=== PATIENT | male | born 1965 | race African-American/Black ===

== ENCOUNTER 2020-04-24 12:14 | Emergency (ER) | payer OTHER, SELFPAY ==
--- NOTE | 2020-04-24 12:21 | ECG_ITS ---
Test Reason : AMS Blood Pressure : / mmHG Vent. Rate : 066 BPM Atrial Rate : 066 BPM P-R Int : 182 ms QRS Dur : 096 ms QT Int : 416 ms P-R-T Axes : 044 -12 -70 degrees QTc Int : 436 ms Normal sinus rhythm Nonspecific T wave abnormality Abnormal ECG When compared with ECG of 09-FEB-2019 00:42, Nonspecific T wave abnormality, worse in Lateral leads Referred By: Yudith Felton Electronically Signed By:SHAZIA TOMPKINS MD
[2020-04-24 12:24] VITALS: BP 149/83; PULSE 65; RESP 18; TEMP 36.6; O2SAT 97; BMI 47.5
[2020-04-24 12:28] LABS: Glucose, Whole Blood 257 mg/dL (60-115)
--- NOTE | 2020-04-24 12:28 | PC.NURSE ---
POC AND EKG OBTAINED UPON PT ARRIVAL
--- NOTE | 2020-04-24 13:21 | ED.GENADULT ---
HPI - General Adult General Chief complaint: General Medical Stated complaint: AMS X'S 1 WEEK,NO MEDS X 'S 1 WEEK Time Seen by Provider: 04/24/20 12:32 Source: patient Mode of arrival: ambulatory Limitations: no limitations History of Present Illness HPI narrative: patient is a 54-year-old male with a past medical history of anxiety, diabetes and neuropathy he presents stating he has not had medications for 1 week. He states he went to [facility] to see his doctor Dr. Sen but missed his appointment and was unable to get refills. Admits to increased anxiety. Denies SI/HI. Related Data Home Medications Medication Instructions Recorded Confirmed divalproex [Depakote ER] 500 mg PO DAILY 04/24/20 04/24/20 trazodone 50 mg PO BEDTIME 04/24/20 04/24/20 Allergies Allergy/AdvReac Type Severity Reaction Status Date / Time morphine [MORPHINE] Allergy Mild ITCHING Unverified 03/20/20 16:14 aspirin [ASPIRIN] Allergy Unknown UNKNOWN Unverified 03/20/20 16:14 NSAIDS (Non-Steroidal Allergy Unknown UNKNOWN Unverified 03/20/20 16:14 Anti-Inflamma [NSAIDS (NON-STEROIDAL ANTI-INFLAMMA] acetaminophen [From TYLENOL] AdvReac Intermediate GI UPSET Unverified 03/20/20 16:14 tramadol [TRAMADOL] AdvReac Mild VOMITING Unverified 03/20/20 16:14 ketorolac [From TORADOL] AdvReac Unknown NAUSEA Unverified 03/20/20 16:14 From DEMEROL Allergy Mild ITCHING Uncoded 03/20/20 16:14 From DILAUDID Allergy Mild ITCHING Uncoded 03/20/20 16:14 Review of Systems Review of Systems: Yes all other systems are reviewed and are negative PMFSH Past Medical History Attestation statement: The following information was validated with the patient. Medical History Anxiety Cataract Diabetes Glaucoma Neuropathy Social History Social History Alcohol intake: never Smoking Status: Never smoker Use of substances other than those prescribed or required for medical reasons: No Advance Directives: No Advance Directives Information Provided: Yes Advance Directives on File: No Physical Exam Vital Signs: Vital Signs: Vital Signs Temp Pulse Resp BP Pulse Ox 04/24/20 14:00 98.1 F 74 16 137/71 97 04/24/20 12:24 98 F 65 18 149/83 H 97 Body Mass Index 47.5 Const: General: cooperative, comfortable and no acute distress Nutritional Appearance: obese morbidly obese Orientation/consciousness: patient oriented x3 Limitations: no limitations HENMT: Head: Yes normal to inspection Eyes: General: appearance normal, both eyes and all related structures Neck: Neck: Yes normal visual inspection Resp: Effort & Inspection: normal respiratory effort and able to speak in complete sentences Auscultation: clear to auscultation bilaterally Cardio: Rate: regular rate Rhythm: regular rhythm Heart sounds: S1 normal heart sound present and S2 normal heart sound present Neuro: General: patient oriented x3 Extrem: General: Yes normal to inspection Psych: Appearance: disheveled Affect: normal affect Attitude: cooperative Thought process: Normal thought process present Thought content: Normal thought content present Insight: Good insight present (Psych) Judgement: Good judgement present (Psych) Course Course Course Narrative: 54-year-old male with past medical history of bipolar, anxiety, diabetes and neuropathy stating he ran out of his medications 1 week ago. We will call his pharmacy to confirm meds give him a dose today and asked the pharmacy to request a refill. Reevaluation(s) Reevaluation #1: Teodoro, the nurse, was able to call patient's pharmacy, [facility] in [place], confirmed doses, gave one dose of each medication and requested refills on patient's behalf. Will give today's dose in the ED and then discharge pt. Medical Decision Making Lab Data Labs: Lab Results 04/24/20 Range/Units 12:24 POC Glucose 257 H (60-115) mg/dL Discharge Plan Discharge Clinical Impression: Does not refill medications appropriately Patient Disposition: Home, Self-Care Instructions: Medicine Refill (ED) Prescriptions: No Action trazodone 50 mg Tablet 50 mg PO BEDTIME RF: 0 divalproex [Depakote ER] 500 mg Tablet Extended Release 24 Hr 500 mg PO DAILY RF: 0 Interventions: ED Discharge Assessment Last Done: 04/24/20 13:59 Discharge Date/Time: 04/24/20 14:48
[2020-04-24] MEDS: Divalproex Sodium 500 MG TABLET.DR PO (13:52)
[2020-04-24] MEDS: traZODone HCL 50 MG TABLET PO (13:52)
[2020-04-24 14:00] VITALS: BP 137/71; PULSE 74; RESP 16; TEMP 36.7; O2SAT 97
== END 2020-04-24 14:48 | disposition home or self-care (01) ==
PROVIDERS: Emergency Provider Emergency Medicine
DX: F41.9 Anxiety disorder, unspecified (principal); F43.0 Acute stress reaction; Z91.14 Patient's other noncompliance with medication regimen; Z79.899 Other long term (current) drug therapy
CPT/HCPCS: 82947; 93005; 99283; 99284

== ENCOUNTER 2020-06-24 12:49 | Emergency (ER) | payer OTHER, SELFPAY ==
--- NOTE | 2020-06-24 13:01 | PC.NURSE ---
severe lower back pain acute on chronic going to physical therapy. poc 160 by ems.
[2020-06-24 15:01] VITALS: BP 134/68; PULSE 77; RESP 18; TEMP 37; O2SAT 98; BMI 48.8
--- NOTE | 2020-06-24 15:42 | CT_ITS ---
EXAMINATION: CT THORACIC SPINE WITHOUT CONTRAST CT LUMBAR SPINE WITHOUT CONTRAST CLINICAL INFORMATION: Fall. Incontinence. Decreased rectal tone. COMPARISON: CT thoracic and lumbar spine from 02/19/2019. TECHNIQUE: Multidetector helical imaging of the thoracic and lumbar spine was obtained without intravenous contrast. Multiple axial reformats and coronal/sagittal reconstructions were created the technologist workstation for review. This CT examination was performed using dose optimization techniques as appropriate, variously including the following: *Automated exposure control. *Adjustment of mA and/or kV according to patient size (this includes techniques or standardized protocols for targeted exams where dose is matched to indication/reason for exam; i.e. extremities or head). *Use of iterative reconstruction technique. DLP: 2449 mGy-cm FINDINGS: Thoracic Spine: There are 12 rib-bearing thoracic type vertebrae. Mild right convex curvature of the thoracic spine. Otherwise, normal anatomic alignment. No evidence of acute fracture or traumatic subluxation. Mild degenerative anterior wedging of T6. Otherwise, the vertebral body heights are maintained. Advanced degenerative disc disease at C6-C7. Moderate degenerative disc disease at C7-T1. Bridging right anterior osteophytosis from T4-T10. Minimal loss of vertebral body height throughout the upper and mid thoracic spine. No suspicious lytic or sclerotic osseous lesions. No significant abnormalities of the paraspinal musculature. Potential 1.7 cm hypoattenuating nodule in the lower pole of the right thyroid lobe. Coronary artery calcifications. Global cardiac enlargement. Otherwise, limited evaluation of the intrathoracic structures without significant abnormalities. The thoracic aorta is of normal contour and caliber. AXIAL SPINAL LEVELS: Prominent disc osteophyte complex at C6-C7. Partially calcified central disc herniation at T2-T3. No additional demonstrated annular abnormalities on the limited exam without intrathecal contrast. Moderate multilevel thoracic facet joint arthropathy. There is partially calcified ligamentum flavum hypertrophy at T2-T3 and T3-T4. Mild to moderate osseous encroachment on the right-sided neural foramina from T1-T4. There appears to be moderate spinal canal stenosis at T2-T3, and potentially mild spinal canal stenosis at T3-T4. Lumbar Spine: There are 5 nonrib-bearing lumbar-type vertebrae. Minimal left convex curvature of the lumbar spine. Otherwise, normal anatomic alignment. No evidence of acute fracture or traumatic subluxation. The vertebral body heights are maintained. Moderate degenerative disc disease from L3-S1 with vacuum disc phenomenon at L4-L5. The intervertebral disc spaces are maintained. No suspicious lytic or sclerotic osseous lesions. Moderate subcutaneous edema within the soft tissues of the back from L2-S1. No discrete fluid collection. No additional significant abnormalities of the paraspinal musculature. Limited evaluation of the intra-abdominal structures without significant abnormalities. The abdominal aorta is of normal contour and caliber with mild calcific disease. AXIAL SPINAL LEVELS: L1-L2: Mild left foraminal disc protrusion. There is moderate right and mild left facet joint arthropathy. There is no neural foraminal stenosis. There is no demonstrated spinal canal stenosis. L2-L3: Mild diffuse disc bulge. There is moderate left worse than right facet joint arthropathy. There is mild left and no right neural foraminal stenosis. There is no demonstrated spinal canal stenosis. L3-L4: Moderate diffuse disc bulge. There is severe bilateral facet joint arthropathy. There is moderate left worse than right neural foraminal stenosis. There appears to be moderate spinal canal stenosis. L4-L5: Moderate diffuse disc bulge with superimposed partially calcified central/left subarticular disc protrusion. There is severe right worse than left facet joint arthropathy. There is moderate left worse than right neural foraminal stenosis. There appears to be mild spinal canal stenosis. L5-S1: Mild diffuse disc bulge with posterior osseous ridging. There is severe right and mild left facet joint arthropathy. There is no neural foraminal stenosis. There is no demonstrated spinal canal stenosis. CT/CT thoracic spine w con IMPRESSION: 1. No evidence of acute fracture or traumatic subluxation of the thoracal lumbar spine. 2. Moderate multilevel degenerative spondyloarthropathy of the lumbar spine as described in detail above. Most notably on this limited exam without intrathecal contrast, there appears to be moderate spinal canal stenoses at L3-L4 and L4-L5. Moderate neural foraminal stenoses at L3-L4 and L4-L5. 3. Mild to moderate multilevel degenerative spondyloarthropathy of the thoracic spine as described in detail above. Most notably on this limited exam without intrathecal contrast, there appears to be moderate spinal canal stenosis at T2-T3 and potentially mild spinal canal stenosis at T3-T4. Mild to moderate osseous encroachment on the right-sided neural foramina from T1-T4. 4. Cardiomegaly.
--- NOTE | 2020-06-24 16:13 | ED_ITS ---
HPI - Fall General Chief Complaint: Fall Stated Complaint: BACK PAIN Time Seen by Provider: 06/24/20 14:56 Source: patient and EMS Mode of arrival: EMS History of Present Illness HPI Narrative: 54-year-old male with a past medical history of anxiety, cataracts, diabetes, glaucoma, hypertension, neuropathy, sleep apnea, obesity, presenting to the ED complaining of low back pain s/p mechanical fall in the bathtub 2 days ago. Patient reports his legs gave out and he fell back on right side. At baseline uses wheelchair, only ambulates minimally due to prior accident/ back surgery in the past. Admits to chronic urinary incontinence, ho wever worsening since fall. Admits pain radiates down right lower extremity. Denies numbness, urinary retention, fever, chills, weakness MD complaint: fall Onset (ago): day(s) Related Data Home Medications Medication Instructions Recorded Confirmed divalproex [Depakote ER] 500 mg PO DAILY 04/24/20 04/24/20 trazodone 50 mg PO BEDTIME 04/24/20 04/24/20 amlodipine 06/24/20 06/24/20 gabapentin 06/24/20 glipizide 06/24/20 hydrochlorothiazide 06/24/20 lisinopril 06/24/20 Previous Rx's Medication Instructions Recorded cyclobenzaprine 10 mg PO TID PRN #10 tab 06/24/20 Allergies Allergy/AdvReac Type Severity Reaction Status Date / Time morphine [MORPHINE] Allergy Mild ITCHING Unverified 03/20/20 16:14 aspirin [ASPIRIN] Allergy Unknown UNKNOWN Unverified 03/20/20 16:14 NSAIDS (Non-Steroidal Allergy Unknown UNKNOWN Unverified 03/20/20 16:14 Anti-Inflamma [NSAIDS (NON-STEROIDAL ANTI-INFLAMMA] acetaminophen [From TYLENOL] AdvReac Intermediate GI UPSET Unverified 03/20/20 16:14 tramadol [TRAMADOL] AdvReac Mild VOMITING Unverified 03/20/20 16:14 ketorolac [From TORADOL] AdvReac Unknown NAUSEA Unverified 03/20/20 16:14 From DEMEROL Allergy Mild ITCHING Uncoded 03/20/20 16:14 From DILAUDID Allergy Mild ITCHING Uncoded 03/20/20 16:14 Review of Systems Review of Systems: Constitutional: No Weight loss, No Fever, No Chills Cardiovascular: No Chest Pain, No SOB Respiratory: No Cough, No Sputum, No Wheezing, No Smoke Exposure, No Dyspnea Gastrointestinal: No Nausea, No Vomiting, No Diarrhea, No Abdominal pain Genitourinary: No Urinary Frequency, No Hematuria, +chronic urinary Incontinence worse, No retention, No Urgency, No Flank Pain, no fecal incontinence Musculoskeletal: +back pain, No Myalgias, No Joint Swelling Skin: No Skin Lesions, No rash Neuro: No Weakness, No Numbness, No Paresthesias, No Loss of Consciousness Psych: No Anxiety/Panic, No Depression, No SI/HI/AH/VH, No Social Issues, Heme/Lymph: No Bruising, No Bleeding,No Lymphadenopathy Endocrine: No Polyuria, No Polydipsia, No Temperature Intolerance Yes all other systems are reviewed and are negative [facility] Past Medical History Attestation statement: The following information was validated with the patient. Medical History (Updated 06/24/20 @ 18:08 by QUIQUE Moreno) Anxiety Cataract Diabetes Glaucoma Hypertension Neuropathy Sleep apnea Social History Social History Alcohol intake: never Smoking Status: Current every day smoker Smoked in Last 30 Days: Yes Use of substances other than those prescribed or required for medical reasons: Yes Substance Use Type: Marijuana Substance Use Frequency: Occasionally Last Used Substance: Days (ago) Advance Directives: No Advance Directives Information Provided: Yes Physical Exam Vital Signs: Vital Signs: Last Vital Signs Temp 98.6 F 06/24/20 15:01 Pulse 69 06/24/20 17:59 Resp 16 06/24/20 17:59 BP 134/68 06/24/20 15:01 Pulse Ox 98 06/24/20 17:59 Body Mass Index 48.8 Const: General: cooperative Nutritional Appearance: obese Limitations: no limitations HENMT: Head: Yes normal to inspection Ears: hearing grossly normal bilaterally General nose exam: Normal external nose present Face and sinus: Yes normal facial exam Eyes: General: appearance normal, both eyes and all related structures EOM: EOMs intact bilaterally Neck: Other: No midline cervical spinous tenderness Neck: Yes normal visual inspection Resp: Effort & Inspection: normal respiratory effort Cardio: Rate: regular rate GI: Inspection: Yes normal to inspection Palpation (GI): Soft to palpation, nontender, no guarding and not rigid Back/Spine/Pelvis: Other: +mildine and bilateral MSK lumbar spinous ttp, +bilateral paraspainal thoracic MSK tenderness Skin: Rashes: no rashes Wounds: no wounds Neuro: Other: decreased RLE great toe dorsiflexion. NO saddle anesthesia, sensation intact to light touch throughout perianal area. Rectal tone decreased General: tone normal Extrem: General: Yes normal to inspection Course Course Course Narrative: * Patient has been sleeping comfortably in stretcher since ED arrival CT thoracic/lumbar spine IMPRESSION: 1. No evidence of acute fracture or traumatic subluxation of the thoracal lumbar spine. 2. Moderate multilevel degenerative spondyloarthropathy of the lumbar spine as described in detail above. Most notably on this limited exam without intrathecal contrast, there appears to be moderate spinal canal stenoses at L3-L4 and L4-L5. Moderate neural foraminal stenoses at L3-L4 and L4-L5. 3. Mild to moderate multilevel degenerative spondyloarthropathy of the thoracic spine as described in detail above. Most notably on this limited exam without intrathecal contrast, there appears to be moderate spinal canal stenosis at T2-T3 and potentially mild spinal canal stenosis at T3-T4. Mild to moderate osseous encroachment on the right-sided neural foramina from T1-T4. 4. Cardiomegaly * Case discussed with Dr. Felton, do not see need for further imaging or transfer at this time. Results discussed with patient. He reports symptomatic improvement in the ED. I stressed the importance with patient he needs to follow up with his PCP/Spine doctor for further evaluation and likely MRI outpatient. Discussed worrisome signs and symptoms including worsening or persistent incontinence, any fecal incontinence, weakness, persistent unremitting pain, un bearable pain to return to the ED immediately. Patient verbalized understanding and feels safe for discharge home MDM - Fall MDM Narrative Medical decision making narrative: 54-year-old male with a past medical history of anxiety, cataracts, diabetes, glaucoma, hypertension, neuropathy, sleep apnea, obesity, presenting to the ED complaining of low back pain s/p mechanical fall in the bathtub 2 days ago. On exam VSS, NAD, midline lumbar spinous tenderness in [place] spinal thoracic/lumbar tenderness. No saddle anesthesia however decreased rectal tone appreciated. Concern for ?cauda equina or cord compression vs fracture vs acute on chronic symptoms. Unclear if these are new/old findings with patient's history. MRI initially ordered however patient exceeds weight limit Plan: CT with contrast for further evaluation Lab Data Result diagrams: 06/24/20 16:32 06/24/20 16:32 Labs: Lab Results 06/24/20 06/24/20 Range/Units 16:32 16:32 WBC 6.1 (4.8-10.8) X10*3/uL RBC 5.20 (4.60-5.80) X10*6/uL Hgb 13.2 L (14.0-18.0) g/dl Hct 41.9 L (42-52) % MCV 80.6 (80-98) fL MCH 25.4 L (27.0-33.0) pg MCHC 31.5 (31.0-36.0) g/dl RDW 13.8 (11.0-16.0) % Plt Count 298 (160-400) X10*3/uL MPV 9.8 (9.4-12.4) fL Immature Gran % (Auto) 0.2 (0.0-0.4) % Neut % (Auto) 57.5 (45-73) % Lymph % (Auto) 33.0 (20-40) % Otero % (Auto) 5.9 (2-11) % Eos % (Auto) 2.6 (0-4) % Baso % (Auto) 0.8 (0-2) % Lymph # (Auto) 2.0 (1.2-4.9) X10*3/uL Otero # (Auto) 0.4 (0.1-1.2) X10*3/uL Eos # (Auto) 0.2 (0.0-0.4) X10*3/uL Baso # (Auto) 0.1 (0.0-0.2) X10*3/uL Abs Immat Gran (auto) 0.01 (0.00-0.03) X10*3/uL Absolute Neuts (auto) 3.5 (2.0-8.3) X10*3/uL Absolute Nucleated RBC 0.000 (0.0-0.012) X10*3/uL Nucleated RBC % (auto) 0.0 (0.0-0.2) /100WBC Sodium 140 (135-145) mmol/L Potassium 3.2 L (3.3-5.1) mmol/l Chloride 100 (96-108) mmol/L Carbon Dioxide 34 H (22-29) mmol/L Anion Gap 9 L (12-20) BUN 8 L (9-16) mg/dL Creatinine 0.79 (0.5-1.4) mg/dL Estim Creat Clear Calc 165.2 Estimated GFR > 60 Random Glucose 89 (60-115) mg/dL Calcium 9.1 (8.4-10.2) mg/dL Discharge Plan Discharge Clinical Impression: Back pain Patient Disposition: Home, Self-Care Instructions: Back Pain (ED) Additional Instructions: Your imaging studies did not show anything acutely concerning or that would need surgical intervention at this time However an MRI as the ideal study for you, you need to follow-up with your primary care doctor and spine doctor as soon as possible, likely needing an MRI outpatient Flexeril as a muscle relaxer, take at for your pain, take at night as you cannot drink alcohol, operate machinery, or drive while taking this medication If her pain persists or worsens, you develop worsening or persistent urinary incontinence or fecal incontinence, or weakness return to the ED immediately Prescriptions: New cyclobenzaprine 10 mg tablet 10 mg PO TID PRN (Reason: muscle spasm) Qty: 10 RF: 0 No Action trazodone 50 mg Tablet 50 mg PO BEDTIME RF: 0 divalproex [Depakote ER] 500 mg Tablet Extended Release 24 Hr 500 mg PO DAILY RF: 0 amlodipine RF: 0 gabapentin RF: 0 glipizide RF: 0 hydrochlorothiazide RF: 0 lisinopril RF: 0 Referrals: Physician,Unknown [Primary Care Provider] - 1 day
[2020-06-24] MEDS: Cyclobenzaprine HCl 10 MG TABLET PO (16:33)
[2020-06-24 16:39] LABS: Basophils Absolute Auto 0.1 X10*3/uL (0.0-0.2); Basophils Percent Auto 0.8 % (0-2); Eosinophils Absolute Auto 0.2 X10*3/uL (0.0-0.4); Eosinophils Percent Auto 2.6 % (0-4); Hematocrit 41.9 % (42-52); Hemoglobin 13.2 g/dl (14.0-18.0); Imm Gran Abs Auto 0.01 X10*3/uL (0.00-0.03); Imm Gran Pct Auto 0.2 % (0.0-0.4); MANUAL DIFF FLAG NO; Mean Corpuscular HGB Conc 31.5 g/dl (31.0-36.0); Mean Corpuscular Hemoglobin 25.4 pg (27.0-33.0); Mean Corpuscular Volume 80.6 fL (80-98); Mean Platelet Volume 9.8 fL (9.4-12.4); Monocytes Absolute Auto 0.4 X10*3/uL (0.1-1.2); Monocytes Percent Auto 5.9 % (2-11); Neutrophils Absolute Auto 3.5 X10*3/uL (2.0-8.3); Neutrophils Percent Auto 57.5 % (45-73); Platelet Count 298 X10*3/uL (160-400); Red Cell Distribution Width 13.8 % (11.0-16.0); White Blood Count 6.1 X10*3/uL (4.8-10.8)
[2020-06-24 17:05] LABS: Anion Gap 9 (12-20); Blood Urea Nitrogen 8 mg/dL (9-16); Calcium 9.1 mg/dL (8.4-10.2); Carbon Dioxide 34 mmol/L (22-29); Chloride 100 mmol/L (96-108); Creatinine Clr Calc Pharmacy 165.2; Estimated Glomerular Filt Rate > 60; Glucose Random 89 mg/dL (60-115); Potassium 3.2 mmol/l (3.3-5.1); Sodium 140 mmol/L (135-145)
[2020-06-24] MEDS: iohexoL 350 MG/ML 100 ML INFUS..BTL IV (17:28)
[2020-06-24 17:59] VITALS: PULSE 69; RESP 16; O2SAT 98
== END 2020-06-24 21:08 | disposition home or self-care (01) ==
PROVIDERS: Physician Assistant; Emergency Provider Emergency Medicine
DX: M54.5 Low back pain (principal); I10 Essential (primary) hypertension; F17.200 Nicotine dependence, unspecified, uncomplicated; Z71.6 Tobacco abuse counseling; F12.90 Cannabis use, unspecified, uncomplicated; Z79.899 Other long term (current) drug therapy
CPT/HCPCS: 36415; 72129; 72132; 80048; 85025; 99285; Q9967

== ENCOUNTER 2021-01-24 18:45 | Emergency (ER) | payer OTHER, SELFPAY ==
--- NOTE | ~2021-01-24 | XR_ITS ---
EXAMINATION: XR SHOULDER, LEFT CLINICAL INFORMATION: Left shoulder pain COMPARISON: Left shoulder radiographs 12/05/2011 TECHNIQUE: Three views of the left shoulder. FINDINGS: Degenerative changes are present shoulder with some glenoid and humeral osteophytes along with some calcification which may be present in the supraspinatus tendon laterally. These findings were not present on the 2011 study. XR/XR shoulder LT min 2V IMPRESSION: New (since 2011) degenerative changes in the right shoulder with possible supraspinatus tendon calcification. No evidence of an acute injury.
[2021-01-24 19:19] VITALS: BP 168/90; PULSE 73; RESP 18; TEMP 36.9; O2SAT 99; BMI 46.0
--- NOTE | 2021-01-24 20:22 | ED_ITS ---
HPI - Extremity Problem General Chief complaint: Extremity Injury, Upper Stated complaint: shoulder pain Time Seen by Provider: 01/24/21 20:22 History of Present Illness HPI Narrative: Patient complains of left trapezius and left shoulder pain after he slipped off the bed 2 days ago when he was sitting on the bed, he has limited mobility due to chronic long-term severe back pain from herniated discs, no other injury, no numbness weakness or tingling Related Data Home Medications Medication Instructions Recorded Confirmed divalproex 500 mg tablet,extended 500 mg PO DAILY 04/24/20 04/24/20 release 24 hr (Depakote ER) trazodone 50 mg tablet 50 mg PO BEDTIME 04/24/20 04/24/20 amlodipine 06/24/20 06/24/20 gabapentin 06/24/20 glipizide 06/24/20 hydrochlorothiazide 06/24/20 lisinopril 06/24/20 Previous Rx's Medication Instructions Recorded cyclobenzaprine 10 mg tablet 10 mg PO TID PRN #10 tab 06/24/20 cyclobenzaprine 5 mg tablet 5 mg PO TID PRN #10 tab 01/24/21 oxycodone 5 mg tablet 5 mg PO Q6H PRN #7 tab 01/24/21 Allergies Allergy/AdvReac Type Severity Reaction Status Date / Time morphine [MORPHINE] Allergy Mild ITCHING Verified 01/24/21 19:19 aspirin [ASPIRIN] Allergy Unknown UNKNOWN Verified 01/24/21 19:19 NSAIDS (Non-Steroidal Allergy Unknown UNKNOWN Verified 01/24/21 19:19 Anti-Inflamma [NSAIDS (NON-STEROIDAL ANTI-INFLAMMA] acetaminophen [From TYLENOL] AdvReac Intermediate GI UPSET Verified 01/24/21 19:19 tramadol [TRAMADOL] AdvReac Mild VOMITING Verified 01/24/21 19:19 ketorolac [From TORADOL] AdvReac Unknown NAUSEA Verified 01/24/21 19:19 From DEMEROL Allergy Mild ITCHING Uncoded 03/20/20 16:14 From DILAUDID Allergy Mild ITCHING Uncoded 03/20/20 16:14 Review of Systems Review of Systems: Positive for left trapezius and left shoulder pain Negatives are no headache no dizziness no weakness no fainting no feeling faint no neck pain no numbness weakness or tingling no chest pain no palpitations no abdominal pain no other extremity pains Yes all other systems are reviewed and are negative [facility] Past Medical History Source: nursing notes reviewed Medical History (Updated 01/25/21 @ 00:00 by Zahida Chand) Anxiety Cataract Diabetes Glaucoma Hypertension Neuropathy Sleep apnea Social History Social History Alcohol intake: never Substance Use Type: Marijuana Advance Directives: No Advance Directives Information Provided: Yes Physical Exam Vital Signs: Vital Signs: Last Vital Signs Temp 98.5 F 01/24/21 19:19 Pulse 73 01/24/21 19:19 Resp 18 01/24/21 19:19 BP 168/90 H 01/24/21 19:19 Pulse Ox 99 01/24/21 19:19 Body Mass Index 46.0 General appearance no acute distress Head is normocephalic atraumatic Neck is supple with no midline tenderness no There is some mild left trapezius tenderness The chest is clear to auscultation bilateral there is no clavicle tenderness there is no chest wall tenderness Heart no murmur Abdomen soft nontender The back no focal bony tenderness Extremities no tenderness swelling or deformity Neuro no focal motor or sensory deficits, ribbon inker strength in both hands is symmetric Course Course Course Narrative: Left shoulder x-ray was negative for any acute fracture, there were some arthritic changes and patient was discharged with analgesics and muscle relaxer and follow with primary doctor Discharge Plan Discharge Clinical Impression: Left shoulder strain Patient Disposition: Home, Self-Care Additional Instructions: I wrote a short course of oxycodone, you can use Flexeril for muscle relaxer Follow with primary doctor any further evaluation or referral Return any time if worse Prescriptions: New cyclobenzaprine 5 mg tablet 5 mg PO TID PRN (Reason: muscle spasm) Qty: 10 RF: 0 oxycodone 5 mg tablet 5 mg PO Q6H PRN (Reason: pain) Qty: 7 RF: 0 No Action trazodone 50 mg Tablet 50 mg PO BEDTIME RF: 0 divalproex [Depakote ER] 500 mg Tablet Extended Release 24 Hr 500 mg PO DAILY RF: 0 amlodipine RF: 0 gabapentin RF: 0 glipizide RF: 0 hydrochlorothiazide RF: 0 lisinopril RF: 0 cyclobenzaprine 10 mg tablet 10 mg PO TID PRN (Reason: muscle spasm) Qty: 10 RF: 0 Interventions: ED Discharge Assessment Last Done: 01/24/21 20:33 Discharge Date/Time: 01/24/21 20:52
== END 2021-01-24 20:52 | disposition home or self-care (01) ==
PROVIDERS: Emergency Provider Emergency Medicine; PCP Physician Assistant Medical
DX: S46.912A Strain of unspecified muscle, fascia and tendon at shoulder and upper arm level, left arm, initial encounter (principal); W06.XXXA Fall from bed, initial encounter; Y93.89 Activity, other specified; Y92.013 Bedroom of single-family (private) house as the place of occurrence of the external cause; Y99.9 Unspecified external cause status
CPT/HCPCS: 73030; 99283

== ENCOUNTER 2021-07-25 17:39 | Emergency (ER) | payer OTHER, SELFPAY ==
--- NOTE | 2021-07-25 | ECG_ITS ---
Test Reason : CHESTPAIN Blood Pressure : / mmHG Vent. Rate : 075 BPM Atrial Rate : 075 BPM P-R Int : 202 ms QRS Dur : 098 ms QT Int : 396 ms P-R-T Axes : 008 -25 -46 degrees QTc Int : 442 ms Normal sinus rhythm Moderate voltage criteria for LVH, may be normal variant ( R in aVL , Spencer product ) Nonspecific T wave abnormality Abnormal ECG When compared with ECG of 24-APR-2020 12:21, No significant change was found Referred By: Generic ED Physician Electronically Signed By:Justin England
[2021-07-25 18:06] VITALS: BP 180/110; BP 190/112; PULSE 76; PULSE 86; RESP 18; TEMP 36.2; O2SAT 100; O2SAT 98; BMI 48.8
[2021-07-25 18:43] LABS: Appearance Urine CLOUDY; Color Urine STRAW; Glucose Urine UA >=1000 MG/DL (NEG); Leukocyte Esterase Urine NEG (NEG); Nitrite Urine NEG (NEG); PH 5.5 (5.0-8.0); Urine Blood NEG (NEG); Urine Ketones NEG (NEG); Urine Protein NEG (NEG-TRACE)
[2021-07-25 18:51] LABS: Mucus Urine TRACE /LPF; RBC Urine 0 /HPF (0); Squamous Epithelial Cell Urine TRACE /LPF; WBC Urine 0-2 /HPF (0-4)
[2021-07-25 18:52] LABS: Amorphous Sediment Urine 1+ /LPF
[2021-07-25 18:53] LABS: Bacteria Urine 1+ /LPF
--- NOTE | 2021-07-25 22:52 | ED.GENADULT ---
HPI - General Adult General Chief complaint: General Medical Stated complaint: hyperglycemia 300's Time Seen by Provider: 07/25/21 22:02 Source: patient Mode of arrival: EMS History of Present Illness HPI narrative: 55-year-old male with multiple medical conditions presents via ambulance from the hotel room where he stays, this patient is a and currently seen at [facility] and comes in for concerns about headache, back pain (has had prior back surgery), shortness of breath, and generalized weakness. Patient has a history of diabetes as well as hypertension. Patient reports that he has had his COVID-19 vaccine, he reports chills but denies any nausea, vomiting, diarrhea. In addition, patient denies any chest pain/palpitations. Patient denies any hearing/visual/extremity numbness, tingling, weakness. Related Data Home Medications Medication Instructions Recorded Confirmed divalproex 500 mg tablet,extended 500 mg PO DAILY 04/24/20 04/24/20 release 24 hr (Depakote ER) trazodone 50 mg tablet 50 mg PO BEDTIME 04/24/20 04/24/20 amlodipine 06/24/20 06/24/20 gabapentin 06/24/20 glipizide 06/24/20 hydrochlorothiazide 06/24/20 lisinopril 06/24/20 Previous Rx's Medication Instructions Recorded cyclobenzaprine 10 mg tablet 10 mg PO TID PRN #10 tab 06/24/20 cyclobenzaprine 5 mg tablet 5 mg PO TID PRN #10 tab 01/24/21 oxycodone 5 mg tablet 5 mg PO Q6H PRN #7 tab 01/24/21 Allergies Allergy/AdvReac Type Severity Reaction Status Date / Time morphine [MORPHINE] Allergy Mild ITCHING Verified 07/25/21 18:09 aspirin [ASPIRIN] Allergy Unknown UNKNOWN Verified 07/25/21 18:09 NSAIDS (Non-Steroidal Allergy Unknown UNKNOWN Verified 07/25/21 18:09 Anti-Inflamma [NSAIDS (NON-STEROIDAL ANTI-INFLAMMA] acetaminophen [From TYLENOL] AdvReac Intermediate GI UPSET Verified 07/25/21 18:09 tramadol [TRAMADOL] AdvReac Mild VOMITING Verified 07/25/21 18:09 ketorolac [From TORADOL] AdvReac Unknown NAUSEA Verified 07/25/21 18:09 From DEMEROL Allergy Mild ITCHING Uncoded 07/25/21 18:09 From DILAUDID Allergy Mild ITCHING Uncoded 07/25/21 18:09 Review of Systems Review of Systems: Pertinent positives and negatives as stated in HPI 10 point review of systems is otherwise negative. [facility] Past Medical History Source: nursing notes reviewed Medical History Anxiety Cataract Diabetes Glaucoma Hypertension Neuropathy Sleep apnea Social History Social History Alcohol intake: never Substance Use Type: Marijuana Advance Directives: No Advance Directives Information Provided: No Physical Exam Vital Signs: Vital Signs: Last Vital Signs Temp 97.1 F 07/25/21 18:06 Pulse 78 07/26/21 03:23 Resp 11 L 07/26/21 03:23 BP 149/79 H 07/26/21 03:23 Pulse Ox 96 07/26/21 03:23 BMI result Body Mass Index 48.8 VITAL SIGNS: Reviewed. GENERAL: Morbidly obese, chronically ill, mild distress. HEAD: Normocephalic/atraumatic EYES: PERRLA, EOMI EARS: Ext canals without abnormality, TMs non-bulging and non-erythematous NOSE: Nares patent bilateral OROPHARYNX: no oral lesions noted, posterior pharynx clear, patient has no teeth, moist mucosa NECK: Supple, no adenopathy LUNGS: Normal breath sounds. No adventitious sounds or accessory muscle use, no tachypnea SpO2<100> CARDIOVASCULAR: Regular rate and rhythm without noted murmurs, no JVD or lower extremity edema. ABDOMEN: Soft, non-tender, non-distended with bowel sounds. MUSCULOSKELETAL: No tenderness, deformities, or effusions noted on gross inspection. EXTREMITIES: No cyanosis, clubbing but has chronic lower extremity bilateral edema that is nonpitting in nature demonstrating thickened skin and color changes consistent with chronic venous stasis SKIN: Inspection of the skin reveals no rashes NEUROLOGIC: Alert and oriented x 4. Strength and sensation to light touch were grossly intact x 4, no pronator drift, cranial nerves 2-12 grossly intact, no facial asymmetry Course Course Course Narrative: 55-year-old male with history and clinical presentation consistent with possible viral or symptoms associated with elevated blood pressure/glucose. Patient provided with oral medication for his blood pressure. Review of all investigations negative for acute findings, and on re-evaluation blood pressure has improved with blood pressure medication, serial troponins were conducted due to detectable levels that on obtaining 2nd specimen are noted to be flat and no acute changes on EKG. Patient was informed of all investigations and otherwise discharged home in stable condition with instructions to continue with his home medications. Medical Decision Making Lab Data Result diagrams: 07/25/21 23:11 07/26/21 02:17 Labs: Lab Results 07/25/21 07/25/21 07/25/21 Range/Units 18:34 23:11 23:11 WBC 6.9 (4.8-10.8) X10*3/uL RBC 5.32 (4.60-5.80) X10*6/uL Hgb 14.0 (14.0-18.0) g/dl Hct 43.7 (42.0-52.0) % MCV 82.1 (80.0-98.0) fL MCH 26.3 L (27.0-33.0) pg MCHC 32.0 (31.0-36.0) g/dl RDW 14.4 (11.0-16.0) % Plt Count 285 (160-400) X10*3/uL MPV 10.0 (9.4-12.4) fL Immature Gran % (Auto) 0.3 (0.0-0.4) % Neut % (Auto) 52.8 (45-73) % Lymph % (Auto) 37.7 (20-40) % [place] % (Auto) 5.6 (2-11) % Eos % (Auto) 3.0 (0-4) % Baso % (Auto) 0.6 (0-2) % Lymph # (Auto) 2.6 (1.2-4.9) X10*3/uL [place] # (Auto) 0.4 (0.1-1.2) X10*3/uL Eos # (Auto) 0.2 (0.0-0.4) X10*3/uL Baso # (Auto) 0.0 (0.0-0.2) X10*3/uL Abs Immat Gran (auto) 0.02 (0.00-0.03) X10*3/uL Absolute Neuts (auto) 3.7 (2.0-8.3) x10*3/uL Absolute Nucleated RBC 0.000 (0.0-0.012) X10*3/uL Nucleated RBC % (auto) 0.0 (0.0-0.2) /100WBC Sodium (135-145) mmol/L Potassium (3.3-5.1) mmol/L Chloride (96-108) mmol/L Carbon Dioxide (22-29) mmol/L Anion Gap (12-20) BUN (9-16) mg/dL Creatinine (0.5-1.4) mg/dL Estim Creat Clear Calc Estimated GFR Random Glucose (60-115) mg/dL Calcium (8.4-10.2) mg/dL Troponin I High Sens 8.5 (<3.5-35.0) ng/L B-Natriuretic Peptide < 10 (<100) pg/mL Urine Color STRAW Urine Appearance CLOUDY Urine pH 5.5 (5.0-8.0) Ur Specific [place] 1.020 (1.005-1.025) Urine Protein NEG (NEG-TRACE) MG/DL Urine Glucose (UA) >=1000 H (NEG) MG/DL Urine Ketones NEG (NEG) MG/DL Urine Blood NEG (NEG) Urine Nitrite NEG (NEG) Ur Leukocyte Esterase NEG (NEG) Urine RBC 0 (0) /HPF Urine WBC 0-2 (0-4) /HPF Ur Squamous Epith Cells TRACE /LPF Amorphous Sediment 1+ /LPF Urine Bacteria 1+ /LPF Urine Mucus TRACE /LPF Urine Opiates Screen (Not Detect) Urine Fentanyl Screen (Not Detect) Ur Barbiturates Screen (Not Detect) Ur Phencyclidine Scrn (Not Detect) Ur Amphetamines Screen (Not Detect) U Benzodiazepines Scrn (Not Detect) Urine Cocaine Screen (Not Detect) U Marijuana (THC) Screen (Not Detect) Acetone, Qual (Negative) COVID-19 (DANIELLA) (Negative) COVID-19 Clin Com 07/25/21 07/25/21 07/25/21 Range/Units 23:11 23:11 23:26 WBC (4.8-10.8) X10*3/uL RBC (4.60-5.80) X10*6/uL Hgb (14.0-18.0) g/dl Hct (42.0-52.0) % MCV (80.0-98.0) fL MCH (27.0-33.0) pg MCHC (31.0-36.0) g/dl RDW (11.0-16.0) % Plt Count (160-400) X10*3/uL MPV (9.4-12.4) fL Immature Gran % (Auto) (0.0-0.4) % Neut % (Auto) (45-73) % Lymph % (Auto) (20-40) % [place] % (Auto) (2-11) % Eos % (Auto) (0-4) % Baso % (Auto) (0-2) % Lymph # (Auto) (1.2-4.9) X10*3/uL [place] # (Auto) (0.1-1.2) X10*3/uL Eos # (Auto) (0.0-0.4) X10*3/uL Baso # (Auto) (0.0-0.2) X10*3/uL Abs Immat Gran (auto) (0.00-0.03) X10*3/uL Absolute Neuts (auto) (2.0-8.3) x10*3/uL Absolute Nucleated RBC (0.0-0.012) X10*3/uL Nucleated RBC % (auto) (0.0-0.2) /100WBC Sodium (135-145) mmol/L Potassium (3.3-5.1) mmol/L Chloride (96-108) mmol/L Carbon Dioxide (22-29) mmol/L Anion Gap (12-20) BUN (9-16) mg/dL Creatinine (0.5-1.4) mg/dL Estim Creat Clear Calc Estimated GFR Random Glucose (60-115) mg/dL Calcium (8.4-10.2) mg/dL Troponin I High Sens (<3.5-35.0) ng/L B-Natriuretic Peptide (<100) pg/mL Urine Color STRAW Urine Appearance CLOUDY Urine pH 5.5 (5.0-8.0) Ur Specific [place] 1.025 (1.005-1.025) Urine Protein NEG (NEG-TRACE) MG/DL Urine Glucose (UA) 500 H (NEG) MG/DL Urine Ketones NEG (NEG) MG/DL Urine Blood NEG (NEG) Urine Nitrite NEG (NEG) Ur Leukocyte Esterase NEG (NEG) Urine RBC (0) /HPF Urine WBC (0-4) /HPF Ur Squamous Epith Cells /LPF Amorphous Sediment /LPF Urine Bacteria /LPF Urine Mucus /LPF Urine Opiates Screen Not Detected (Not Detect) Urine Fentanyl Screen Not Detected (Not Detect) Ur Barbiturates Screen Not Detected (Not Detect) Ur Phencyclidine Scrn Not Detected (Not Detect) Ur Amphetamines Screen Not Detected (Not Detect) U Benzodiazepines Scrn Not Detected (Not Detect) Urine Cocaine Screen Not Detected (Not Detect) U Marijuana (THC) Screen Not Detected (Not Detect) Acetone, Qual (Negative) COVID-19 (DANIELLA) Negative (Negative) COVID-19 Clin Com See Note 07/26/21 07/26/21 Range/Units 02:15 02:17 WBC (4.8-10.8) X10*3/uL RBC (4.60-5.80) X10*6/uL Hgb (14.0-18.0) g/dl Hct (42.0-52.0) % MCV (80.0-98.0) fL MCH (27.0-33.0) pg MCHC (31.0-36.0) g/dl RDW (11.0-16.0) % Plt Count (160-400) X10*3/uL MPV (9.4-12.4) fL Immature Gran % (Auto) (0.0-0.4) % Neut % (Auto) (45-73) % Lymph % (Auto) (20-40) % [place] % (Auto) (2-11) % Eos % (Auto) (0-4) % Baso % (Auto) (0-2) % Lymph # (Auto) (1.2-4.9) X10*3/uL [place] # (Auto) (0.1-1.2) X10*3/uL Eos # (Auto) (0.0-0.4) X10*3/uL Baso # (Auto) (0.0-0.2) X10*3/uL Abs Immat Gran (auto) (0.00-0.03) X10*3/uL Absolute Neuts (auto) (2.0-8.3) x10*3/uL Absolute Nucleated RBC (0.0-0.012) X10*3/uL Nucleated RBC % (auto) (0.0-0.2) /100WBC Sodium 138 (135-145) mmol/L Potassium 4.0 (3.3-5.1) mmol/L Chloride 102 (96-108) mmol/L Carbon Dioxide 27 (22-29) mmol/L Anion Gap 13 (12-20) BUN 12 (9-16) mg/dL Creatinine 0.79 (0.5-1.4) mg/dL Estim Creat Clear Calc 163.2 Estimated GFR > 60 Random Glucose 206 H D (60-115) mg/dL Calcium 9.3 (8.4-10.2) mg/dL Troponin I High Sens 8.5 (<3.5-35.0) ng/L B-Natriuretic Peptide (<100) pg/mL Urine Color Urine Appearance Urine pH (5.0-8.0) Ur Specific [place] (1.005-1.025) Urine Protein (NEG-TRACE) MG/DL Urine Glucose (UA) (NEG) MG/DL Urine Ketones (NEG) MG/DL Urine Blood (NEG) Urine Nitrite (NEG) Ur Leukocyte Esterase (NEG) Urine RBC (0) /HPF Urine WBC (0-4) /HPF Ur Squamous Epith Cells /LPF Amorphous Sediment /LPF Urine Bacteria /LPF Urine Mucus /LPF Urine Opiates Screen (Not Detect) Urine Fentanyl Screen (Not Detect) Ur Barbiturates Screen (Not Detect) Ur Phencyclidine Scrn (Not Detect) Ur Amphetamines Screen (Not Detect) U Benzodiazepines Scrn (Not Detect) Urine Cocaine Screen (Not Detect) U Marijuana (THC) Screen (Not Detect) Acetone, Qual Negative (Negative) COVID-19 (DANIELLA) (Negative) COVID-19 Clin Com Discharge Plan Discharge Clinical Impression: Hypertension, Hyperglycemia Patient Disposition: Home, Self-Care Instructions: Diabetic Hyperglycemia (ED), DASH Eating Plan (ED), Hypertension (ED) Additional Instructions: 1. Resume all home medications as prescribed. 2. [facility] Return to the ER for worsening symptoms. Prescriptions: No Action trazodone 50 mg Tablet 50 mg PO BEDTIME RF: 0 divalproex [Depakote ER] 500 mg Tablet Extended Release 24 Hr 500 mg PO DAILY RF: 0 amlodipine RF: 0 gabapentin RF: 0 glipizide RF: 0 hydrochlorothiazide RF: 0 lisinopril RF: 0 cyclobenzaprine 10 mg tablet 10 mg PO TID PRN (Reason: muscle spasm) Qty: 10 RF: 0 cyclobenzaprine 5 mg tablet 5 mg PO TID PRN (Reason: muscle spasm) Qty: 10 RF: 0 oxycodone 5 mg tablet 5 mg PO Q6H PRN (Reason: pain) Qty: 7 RF: 0 Referrals: Edie Parker MD [Primary Care Provider] - 2 days
[2021-07-25 23:18] LABS: Basophils Percent Auto 0.6 % (0-2); Eosinophils Absolute Auto 0.2 X10*3/uL (0.0-0.4); Hematocrit 43.7 % (42.0-52.0); Imm Gran Abs Auto 0.02 X10*3/uL (0.00-0.03); Imm Gran Pct Auto 0.3 % (0.0-0.4); Lymphocytes Absolute Auto 2.6 X10*3/uL (1.2-4.9); Lymphocytes Percent Auto 37.7 % (20-40); MANUAL DIFF FLAG NO; Mean Corpuscular Hemoglobin 26.3 pg (27.0-33.0); Mean Corpuscular Volume 82.1 fL (80.0-98.0); Monocytes Absolute Auto 0.4 X10*3/uL (0.1-1.2); Monocytes Percent Auto 5.6 % (2-11); Neutrophils Absolute Auto 3.7 x10*3/uL (2.0-8.3); Neutrophils Percent Auto 52.8 % (45-73); Platelet Count 285 X10*3/uL (160-400); Red Blood Count 5.32 X10*6/uL (4.60-5.80); Red Cell Distribution Width 14.4 % (11.0-16.0); White Blood Count 6.9 X10*3/uL (4.8-10.8)
[2021-07-25 23:20] LABS: Appearance Urine CLOUDY; Color Urine STRAW; Glucose Urine UA 500 MG/DL (NEG); Leukocyte Esterase Urine NEG (NEG); Nitrite Urine NEG (NEG); PH 5.5 (5.0-8.0); Specific Gravity - Urine 1.025 (1.005-1.025); Urine Blood NEG (NEG); Urine Ketones NEG (NEG); Urine Protein NEG (NEG-TRACE)
[2021-07-25] MEDS: amLODIPine Besylate 10 MG TABLET PO (23:35)
[2021-07-25 23:38] LABS: Amphetamine Screen Urine Not Detected (Not Detect); B Type Natriuretic Peptide < 10 pg/mL (<100); Barbiturates, Urine Not Detected (Not Detect); Benzodiazepines Screen Urine Not Detected (Not Detect); Cannabinoid Screen Urine Not Detected (Not Detect); Cocaine Screen Urine Not Detected (Not Detect); Fentanyl, urine Not Detected (Not Detect); Opiate Screen Urine Not Detected (Not Detect); Phencyclidine Screen Urine Not Detected (Not Detect); Troponin-I High Sensitivity 8.5 ng/L (<3.5-35.0)
[2021-07-25 23:46] LABS: COVID-19 Test Negative (Negative)
[2021-07-26 01:47] VITALS: BP 163/79; PULSE 73; RESP 15; O2SAT 94
[2021-07-26 02:40] LABS: Acetone, serum QL Negative (Negative)
[2021-07-26 02:55] LABS: Anion Gap 13 (12-20); Blood Urea Nitrogen 12 mg/dL (9-16); Calcium 9.3 mg/dL (8.4-10.2); Carbon Dioxide 27 mmol/L (22-29); Chloride 102 mmol/L (96-108); Creatinine Clr Calc Pharmacy 163.2; Estimated Glomerular Filt Rate > 60; Glucose Random 206 mg/dL (60-115); Sodium 138 mmol/L (135-145)
[2021-07-26 03:23] VITALS: BP 149/79; PULSE 78; RESP 11; O2SAT 96
[2021-07-26 04:06] LABS: Troponin-I High Sensitivity 8.5 ng/L (<3.5-35.0)
--- NOTE | 2021-07-26 05:47 | PC.NURSE ---
[facility] approximately 0540.
[2021-07-26 06:02] VITALS: BP 160/79; PULSE 74; RESP 16; TEMP 36.7; O2SAT 97
--- NOTE | 2021-07-26 09:40 | MHC.CM.PN ---
PT IS BEING DISCHARGED FROM ED. CHAIR VAN TRANSPORT ARRANGED PT CONFIRMED HE IS RETURNING TO THE [facility] REQUESTED FOR 1030 HOURS
--- NOTE | 2021-07-26 09:58 | PHA.MEDREC ---
Pharmacy Consult ? Medication Reconciliation Pharmacy has completed the medication reconciliation. Pt fills all meds at the [facility].
== END 2021-07-26 14:12 | disposition home or self-care (01) ==
PROVIDERS: Emergency Provider Student in an Organized Health Care Education/Training Program; PCP Internal Medicine
DX: E11.65 Type 2 diabetes mellitus with hyperglycemia (principal); I10 Essential (primary) hypertension; Z20.822 Contact with and (suspected) exposure to COVID-19; R06.02 Shortness of breath
CPT/HCPCS: 36415; 80048; 80307; 81001; 81003; 82009; 83880; 84484; 85025; 87635; 93005; 99284

== ENCOUNTER 2021-12-14 20:58 | Emergency (ER) | payer OTHER, SELFPAY ==
[2021-12-14 21:14] VITALS: BP 140/80; PULSE 105; O2SAT 96
[2021-12-14 21:42] LABS: Glucose, Whole Blood 170 mg/dL (60-115)
[2021-12-14 21:43] VITALS: BP 149/107; PULSE 104; RESP 20; TEMP 37; O2SAT 95; BMI 50.1
--- NOTE | 2021-12-15 01:06 | ED_ITS ---
HPI - Back Pain/Injury General Chief Complaint: Back Pain/Injury Stated Complaint: lower back pain Time Seen by Provider: 12/15/21 00:58 Source: patient Mode of arrival: EMS Limitations: no limitations History of Present Illness HPI Narrative: Patient with chronic back problems wheelchair-bound mostly with history of bipolar disorder neuropathy and diabetes comes here for increased pain in the lower back as he over-exerted himself at the apartment in a hotel although patient does not walk he can take 1 or 2 steps exactly not sure what happened to him but he used to take oxycodone which he does not have it this time patient did not fall no urinary complaints no radiation of the pain pain is localized to the lower back which is at its usual site Related Data Home Medications Medication Instructions Recorded Confirmed amlodipine 10 mg tablet 1 tab PO DAILY 07/26/21 07/26/21 divalproex 500 mg tablet,extended 1 tab PO BEDTIME 07/26/21 07/26/21 release 24 hr gabapentin 300 mg capsule 300 mg PO QID 07/26/21 07/26/21 glipizide 10 mg tablet 10 mg PO BIDAC 07/26/21 07/26/21 hydrochlorothiazide 25 mg tablet 25 mg PO DAILY 07/26/21 07/26/21 latanoprost 0.005 % eye drops 1 drp ophthalmic (eye) BEDTIME 07/26/21 07/26/21 lisinopril 40 mg tablet 1 tab PO DAILY 07/26/21 07/26/21 spironolactone 25 mg tablet 25 mg PO DAILY 07/26/21 07/26/21 trazodone 50 mg tablet 1 tab PO BEDTIME 07/26/21 07/26/21 trazodone 50 mg tablet 50 mg PO BEDTIME PRN Sleep 07/26/21 07/26/21 Previous Rx's Medication Instructions Recorded cefuroxime axetil 500 mg tablet 500 mg PO BID 7 days #14 tabs 12/15/21 cyclobenzaprine 10 mg tablet 10 mg PO Q8H #20 tabs 12/15/21 oxycodone 5 mg tablet 5 mg PO Q6H PRN Moderate Pain 12/15/21 (Scale Score 5-6) #20 tabs Allergies Allergy/AdvReac Type Severity Reaction Status Date / Time morphine [MORPHINE] Allergy Mild ITCHING Verified 07/25/21 18:09 aspirin [ASPIRIN] Allergy Unknown UNKNOWN Verified 07/25/21 18:09 NSAIDS (Non-Steroidal Allergy Unknown UNKNOWN Verified 07/25/21 18:09 Anti-Inflamma [NSAIDS (NON-STEROIDAL ANTI-INFLAMMA] acetaminophen [From TYLENOL] AdvReac Intermediate GI UPSET Verified 07/25/21 18:09 tramadol [TRAMADOL] AdvReac Mild VOMITING Verified 07/25/21 18:09 ketorolac [From TORADOL] AdvReac Unknown NAUSEA Verified 07/25/21 18:09 From DEMEROL Allergy Mild ITCHING Uncoded 07/25/21 18:09 From DILAUDID Allergy Mild ITCHING Uncoded 07/25/21 18:09 Review of Systems Review of Systems: Yes all other systems are reviewed and are negative [facility] Past Medical History Medical History Hypertension Sleep apnea Social History Social History Alcohol intake: never Substance Use Type: Marijuana Advance Directives: No Advance Directives Information Provided: Yes Physical Exam Vital Signs: Vital Signs: Last Vital Signs Temp 97.5 F 12/15/21 01:49 Pulse 72 12/15/21 01:49 Resp 18 12/15/21 01:49 BP 148/84 H 12/15/21 01:49 Pulse Ox 98 12/15/21 01:49 O2 Del Method 12/15/21 01:49 BMI result Body Mass Index 50.1 Appearance: Alert. Oriented X3. No acute distress. Obese ENT: Pharynx normal. Oral Mucosa moist Neck: Normal inspection. Neck supple. CVS: Normal heart rate and rhythm. Pulses normal. Respiratory: No respiratory distress. Equal air entry bilateral, no wheezing/rales/rhonchi Abdomen: Soft and nontender. Bowel sounds are present, no mass palpable, no CVA tenderness Skin: Skin warm and dry. Normal skin color. Normal skin turgor. Extremities: Nonpitting bilateral leg edema No calf tenderness back: Diffuse tenderness lumbar vertebral area Neuro: Oriented X 3. No motor deficit. No sensory deficit.No cerebellar signs , cranial nerves II-XII intact MDM - Back Pain/Injury MDM Narrative Medical decision making narrative: Patient has chronic back pain with UTI will discharge patient home on Ceftin and oxycodone Lab Data Attestation: I reviewed the patient's lab results. Labs: Lab Results 12/14/21 12/15/21 Range/Units 21:39 01:15 POC Glucose 170 H (60-115) mg/dL Urine Color YELLOW Urine Appearance CLOUDY Urine pH 7.0 (5.0-8.0) Ur Specific [place] 1.010 (1.005-1.025) Urine Protein NEG (NEG-TRACE) MG/DL Urine Glucose (UA) NEG (NEG) MG/DL Urine Ketones NEG (NEG) MG/DL Urine Blood NEG (NEG) Urine Nitrite POS H (NEG) Ur Leukocyte Esterase TRACE H (NEG) Urine RBC 0 (0) /HPF Urine WBC 5-9 H (0-4) /HPF Ur Squamous Epith Cells 1+ /LPF Urine Bacteria 4+ /LPF Discharge Plan Discharge Clinical Impression: Strain of lumbar region, UTI (urinary tract infection) Patient Disposition: Home, Self-Care Instructions: Low Back Strain (ED), Urinary Tract Infection in Older Adults (ED) Additional Instructions: Drink plenty of fluids Pain medication as prescribed Follow with PCP if not better Prescriptions: New cefuroxime axetil 500 mg tablet 500 mg PO BID 7 Days Qty: 14 0RF cyclobenzaprine 10 mg tablet 10 mg PO Q8H Qty: 20 0RF oxycodone 5 mg tablet 5 mg PO Q6H PRN (Reason: Moderate Pain (Scale Score 5-6)) Qty: 20 0RF Rx Instructions: Partial Fill upon patient request. No Action latanoprost 0.005 % Drops 1 drp OPHTHALMIC (EYE) BEDTIME trazodone 50 mg tablet 1 tab PO BEDTIME trazodone 50 mg Tablet 50 mg PO BEDTIME PRN (Reason: Sleep) glipizide 10 mg Tablet 10 mg PO BIDAC spironolactone 25 mg Tablet 25 mg PO DAILY amlodipine 10 mg tablet 1 tab PO DAILY divalproex 500 mg tablet extended release 24 hr 1 tab PO BEDTIME gabapentin 300 mg capsule 300 mg PO QID hydrochlorothiazide 25 mg Tablet 25 mg PO DAILY lisinopril 40 mg tablet 1 tab PO DAILY
[2021-12-15 01:19] LABS: Appearance Urine CLOUDY; Color Urine YELLOW; Glucose Urine UA NEG (NEG); Leukocyte Esterase Urine TRACE (NEG); Nitrite Urine POS (NEG); UACC Culture Trigger YES; Urine Blood NEG (NEG); Urine Ketones NEG (NEG); Urine Protein NEG (NEG-TRACE)
[2021-12-15 01:27] LABS: Bacteria Urine 4+ /LPF; RBC Urine 0 /HPF (0); Squamous Epithelial Cell Urine 1+ /LPF
[2021-12-15 01:49] VITALS: BP 148/84; PULSE 72; RESP 18; TEMP 36.4; O2SAT 98
[2021-12-15] MEDS: Cyclobenzaprine HCl 10 MG TABLET PO (02:02)
[2021-12-15] MEDS: oxyCODONE HCl Immed Release 5 MG TABLET 10 MG PO (02:03)
== END 2021-12-15 05:33 | disposition home or self-care (01) ==
PROVIDERS: Emergency Provider Internal Medicine
DX: S39.012A Strain of muscle, fascia and tendon of lower back, initial encounter (principal); X58.XXXA Exposure to other specified factors, initial encounter; E11.9 Type 2 diabetes mellitus without complications; Y93.9 Activity, unspecified; Y92.59 Other trade areas as the place of occurrence of the external cause; Y99.9 Unspecified external cause status; N39.0 Urinary tract infection, site not specified
CPT/HCPCS: 81001; 82947; 87086; 87088; 99283

== ENCOUNTER 2022-01-28 09:40 | Emergency (ER) | payer OTHER, SELFPAY ==
--- NOTE | ~2022-01-28 | XR_ITS ---
EXAMINATION: CR X-RAY KNEE, TIBIA/FIBULA, ANKLE RIGHT CLINICAL INFORMATION: Right lower leg pain. COMPARISON: Right knee radiographs dated 01/18/2013. TECHNIQUE: 3 views of the right knee, 2 views of the right tibia/fibula and 3 views of the right ankle were obtained. Adequately lateral views were not obtained due to uncooperative patient. FINDINGS: Mild to moderate femoral-tibial degenerative joint changes are seen more pronounced medially. The tibia and fibula appear intact. Small corticated osseous density is seen adjacent to the inferolateral margin of the medial malleolus with mild spurring. The tibiotalar joint space is intact. The lateral malleolus intact. Mild to moderate soft tissue swelling is seen most pronounced surrounding the ankle. XR/XR tibia fibula RT 2V IMPRESSION: 1. Moderate soft tissue swelling or surrounding ankle without definitive acute abnormality. 2. Mild to moderate right knee degenerative joint changes.
--- NOTE | ~2022-01-28 | XR_ITS ---
EXAMINATION: CR X-RAY KNEE, TIBIA/FIBULA, ANKLE RIGHT CLINICAL INFORMATION: Right lower leg pain. COMPARISON: Right knee radiographs dated 01/18/2013. TECHNIQUE: 3 views of the right knee, 2 views of the right tibia/fibula and 3 views of the right ankle were obtained. Adequately lateral views were not obtained due to uncooperative patient. FINDINGS: Mild to moderate femoral-tibial degenerative joint changes are seen more pronounced medially. The tibia and fibula appear intact. Small corticated osseous density is seen adjacent to the inferolateral margin of the medial malleolus with mild spurring. The tibiotalar joint space is intact. The lateral malleolus intact. Mild to moderate soft tissue swelling is seen most pronounced surrounding the ankle. XR/XR knee RT 2V IMPRESSION: 1. Moderate soft tissue swelling or surrounding ankle without definitive acute abnormality. 2. Mild to moderate right knee degenerative joint changes.
--- NOTE | ~2022-01-28 | XR_ITS ---
EXAMINATION: CR X-RAY KNEE, TIBIA/FIBULA, ANKLE RIGHT CLINICAL INFORMATION: Right lower leg pain. COMPARISON: Right knee radiographs dated 01/18/2013. TECHNIQUE: 3 views of the right knee, 2 views of the right tibia/fibula and 3 views of the right ankle were obtained. Adequately lateral views were not obtained due to uncooperative patient. FINDINGS: Mild to moderate femoral-tibial degenerative joint changes are seen more pronounced medially. The tibia and fibula appear intact. Small corticated osseous density is seen adjacent to the inferolateral margin of the medial malleolus with mild spurring. The tibiotalar joint space is intact. The lateral malleolus intact. Mild to moderate soft tissue swelling is seen most pronounced surrounding the ankle. XR/XR ankle RT 2V IMPRESSION: 1. Moderate soft tissue swelling or surrounding ankle without definitive acute abnormality. 2. Mild to moderate right knee degenerative joint changes.
[2022-01-28 09:46] VITALS: BP 176/116; BP 179/88; PULSE 74; PULSE 75; RESP 20; TEMP 36.8; O2SAT 96; O2SAT 97; BMI 50.8
--- NOTE | 2022-01-28 10:21 | ED.GENADULT ---
HPI - General Adult General Chief complaint: Extremity Problem Stated complaint: RIGHT KNEE PAIN Time Seen by Provider: 01/28/22 13:11 Source: patient Mode of arrival: ambulatory Limitations: no limitations History of Present Illness HPI narrative: 56-year-old male presents to the ED for right knee/ankle/foot pain. Patient is bedbound. Patient was on his wheelchair without legs and his right foot got caught on the ground on the wheelchair was causing him to twist his ankle and leg and knee. As per staff patient did not fall to the ground patient. denies falling to the ground this leg got caught on the chair. Patient denies hitting head or loss of consciousness. Patient's history of degenerative disc disease of bilateral knees and L3-L4 with disc herniation as per patient. Related Data Home Medications Medication Instructions Recorded Confirmed amlodipine 10 mg tablet 1 tab PO DAILY 07/26/21 07/26/21 divalproex 500 mg tablet,extended 1 tab PO BEDTIME 07/26/21 07/26/21 release 24 hr gabapentin 300 mg capsule 300 mg PO QID 07/26/21 07/26/21 glipizide 10 mg tablet 10 mg PO BIDAC 07/26/21 07/26/21 hydrochlorothiazide 25 mg tablet 25 mg PO DAILY 07/26/21 07/26/21 latanoprost 0.005 % eye drops 1 drp ophthalmic (eye) BEDTIME 07/26/21 07/26/21 lisinopril 40 mg tablet 1 tab PO DAILY 07/26/21 07/26/21 spironolactone 25 mg tablet 25 mg PO DAILY 07/26/21 07/26/21 trazodone 50 mg tablet 1 tab PO BEDTIME 07/26/21 07/26/21 trazodone 50 mg tablet 50 mg PO BEDTIME PRN Sleep 07/26/21 07/26/21 Previous Rx's Medication Instructions Recorded cefuroxime axetil 500 mg tablet 500 mg PO BID 7 days #14 tabs 12/15/21 cyclobenzaprine 10 mg tablet 10 mg PO Q8H #20 tabs 12/15/21 oxycodone 5 mg tablet 5 mg PO Q6H PRN pain #14 tabs 12/15/21 oxycodone 5 mg capsule 5 mg PO TID PRN pain 3 days #9 caps 07/28/22 prednisone 20 mg tablet 60 mg PO DAILY sprain 5 days #15 01/28/22 tabs Allergies Allergy/AdvReac Type Severity Reaction Status Date / Time morphine [MORPHINE] Allergy Mild ITCHING Verified 07/25/21 18:09 aspirin [ASPIRIN] Allergy Unknown UNKNOWN Verified 07/25/21 18:09 NSAIDS (Non-Steroidal Allergy Unknown UNKNOWN Verified 07/25/21 18:09 Anti-Inflamma [NSAIDS (NON-STEROIDAL ANTI-INFLAMMA] acetaminophen [From TYLENOL] AdvReac Intermediate GI UPSET Verified 07/25/21 18:09 tramadol [TRAMADOL] AdvReac Mild VOMITING Verified 07/25/21 18:09 ketorolac [From TORADOL] AdvReac Unknown NAUSEA Verified 07/25/21 18:09 From DEMEROL Allergy Mild ITCHING Uncoded 07/25/21 18:09 From DILAUDID Allergy Mild ITCHING Uncoded 07/25/21 18:09 Review of Systems Review of Systems: right knee, leg, and ankle pain PMFSH Past Medical History Medical History Hypertension Sleep apnea Social History Social History Alcohol intake: never Substance Use Type: Marijuana Advance Directives: No Advance Directives Information Provided: No Physical Exam ED Vital Signs: Vital Signs - 24 hr 01/28/22 09:46 01/28/22 10:31 Temperature 98.2 F Pulse Rate 75 68 Respiratory Rate 20 16 Blood Pressure 179/88 H 161/73 H Pulse Oximetry 96 97 Oxygen Delivery Method Room Air Room Air BMI result Body Mass Index 50.8 Const General: cooperative, healthy appearing, comfortable, no acute distress, well developed, alert, awake and Physically active Orientation/consciousness: patient oriented x3 HENMT Head: Yes normal to inspection, Yes No palpable skull fracture present, Yes normocephalic, Yes atraumatic and No abrasion Eyes General: appearance normal, both eyes and all related structures Neck Neck: Yes normal visual inspection, Yes full ROM, Yes no lymphadenopathy, Yes no meningeal signs, Yes trachea midline, Yes supple, No anterior neck swelling and No tender Chest Chest palpation & inspection: normal inspection of the chest and normal palpation of entire chest wall Resp Effort & Inspection: normal respiratory effort and able to speak in complete sentences Auscultation: clear to auscultation bilaterally Cardio Jugular venous distension: no JVD Heart sounds: S1 normal heart sound present and S2 normal heart sound present GI Inspection: Yes normal to inspection and No abdominal wall ecchymosis Palpation (GI): Soft to palpation, not firm, nontender, no guarding and not rigid General: No CVA tenderness and Yes no CVA tenderness Back/Spine/Pelvis Back: no CVA tenderness, No CVA tenderness and No back tenderness Skin General skin exam: no rashes or lesions noted and elasticity normal Neuro Other: Patient wheelchair bound. Negative for any neuro deficits. General: patient oriented x3 and no meningeal signs Extrem General: Yes normal to inspection and Yes full ROM Psych Appearance: grossly normal, well kempt and not disheveled Course Course Course Narrative: Patient was sent for imaging of right lower extremities. Patient states no allergic reaction to oxycodone. Oxycodone and steroids ordered Reevaluation(s) Reevaluation #1: Patient x-ray does not show any fractures. Ankle x-ray shows some swelling. Patient informed due to mechanism of twisting of ankle and he will need MRI by his primary care provider to rule out any ligament/tendon injury. Patient also informed his legs of wheel chair should be fixed. Patient on oxycodone Time: 13:16 Medical Decision Making [facility] Narrative Medical decision making narrative: ankl/knee sprain Discharge Plan Discharge Clinical Impression: High ankle sprain of right lower extremity, Arthritis of knee, degenerative Patient Disposition: Home, Self-Care Instructions: Ankle Sprain (ED), Osteoarthritis (ED) Additional Instructions: X-rays came back negative for fracture. Due to twisting of knee and ankle most likely will need MRI to make sure there is no ligamentous/tendon injury. You will be discharged with steroids. Return to ED immediately for any swelling of lower extremity, severe pain, bluish black discoloration, coldness/hotness, paralysis of lower extremity, headache, dizziness, nausea, vomiting, or any other concerning symptoms. Please follow up [facility] PCP Prescriptions: New prednisone 20 mg tablet 60 mg PO DAILY 5 Days Qty: 15 0RF oxycodone 5 mg capsule 5 mg PO TID PRN (Reason: pain) 3 Days Qty: 9 0RF Rx Instructions: Partial Fill upon patient request. No Action latanoprost 0.005 % Drops 1 drp OPHTHALMIC (EYE) BEDTIME trazodone 50 mg tablet 1 tab PO BEDTIME trazodone 50 mg Tablet 50 mg PO BEDTIME PRN (Reason: Sleep) glipizide 10 mg Tablet 10 mg PO BIDAC spironolactone 25 mg Tablet 25 mg PO DAILY amlodipine 10 mg tablet 1 tab PO DAILY divalproex 500 mg tablet extended release 24 hr 1 tab PO BEDTIME gabapentin 300 mg capsule 300 mg PO QID hydrochlorothiazide 25 mg Tablet 25 mg PO DAILY lisinopril 40 mg tablet 1 tab PO DAILY cefuroxime axetil 500 mg tablet 500 mg PO BID 7 Days Qty: 14 0RF cyclobenzaprine 10 mg tablet 10 mg PO Q8H Qty: 20 0RF oxycodone 5 mg tablet 5 mg PO Q6H PRN (Reason: pain) Qty: 14 0RF Rx Instructions: Partial Fill upon patient request. Interventions: ED Discharge Assessment Last Done: 01/28/22 15:28 Discharge Date/Time: 01/28/22 15:29 Print Language: Hungarian
[2022-01-28 10:31] VITALS: BP 161/73; PULSE 68; RESP 16; O2SAT 97
[2022-01-28] MEDS: oxyCODONE HCl Immed Release 5 MG TABLET PO (10:50)
[2022-01-28] MEDS: predniSONE 20 MG TABLET 60 MG PO (10:50)
== END 2022-01-28 15:29 | disposition home or self-care (01) ==
PROVIDERS: Emergency Provider Student in an Organized Health Care Education/Training Program
DX: S93.401A Sprain of unspecified ligament of right ankle, initial encounter (principal); M17.11 Unilateral primary osteoarthritis, right knee; M79.604 Pain in right leg; W01.0XXA Fall on same level from slipping, tripping and stumbling without subsequent striking against object, initial encounter; Y93.9 Activity, unspecified; Y92.9 Unspecified place or not applicable; Y99.9 Unspecified external cause status; Z79.899 Other long term (current) drug therapy
CPT/HCPCS: 73560; 73590; 73600; 99283

== ENCOUNTER 2022-03-13 21:47 | Emergency (ER) | payer OTHER, SELFPAY ==
[2022-03-13 21:53] VITALS: PULSE 101; O2SAT 96
[2022-03-13 22:29] VITALS: BP 175/102; PULSE 96; RESP 18; TEMP 37.6; O2SAT 98; BMI 47.5
[2022-03-13 23:03] LABS: COVID-19 Test Positive (Negative)
--- NOTE | 2022-03-14 00:38 | ED.GENADULT ---
HPI - General Adult General Chief complaint: General Medical Stated complaint: Covid + Time Seen by Provider: 03/14/22 00:19 Source: patient and EMS Mode of arrival: EMS Limitations: no limitations History of Present Illness HPI narrative: patient comes to the emergency room complaining of 2-3 days runny nose, feeling weak. Patient has chronic back pain but states this is his usual baseline for him. Patient denies urinary /fecal incontinence / retention. Denies any acute symptoms. Patient has an electric chair at home. Patient came because he tested positive for COVID-19 tonight. Related Data Home Medications Medication Instructions Recorded Confirmed amlodipine 10 mg tablet 1 tab PO DAILY 07/26/21 07/26/21 divalproex 500 mg tablet,extended 1 tab PO BEDTIME 07/26/21 07/26/21 release 24 hr gabapentin 300 mg capsule 300 mg PO QID 07/26/21 07/26/21 glipizide 10 mg tablet 10 mg PO BIDAC 07/26/21 07/26/21 hydrochlorothiazide 25 mg tablet 25 mg PO DAILY 07/26/21 07/26/21 latanoprost 0.005 % eye drops 1 drp ophthalmic (eye) BEDTIME 07/26/21 07/26/21 lisinopril 40 mg tablet 1 tab PO DAILY 07/26/21 07/26/21 spironolactone 25 mg tablet 25 mg PO DAILY 07/26/21 07/26/21 trazodone 50 mg tablet 1 tab PO BEDTIME 07/26/21 07/26/21 trazodone 50 mg tablet 50 mg PO BEDTIME PRN Sleep 07/26/21 07/26/21 Previous Rx's Medication Instructions Recorded cefuroxime axetil 500 mg tablet 500 mg PO BID 7 days #14 tabs 12/15/21 cyclobenzaprine 10 mg tablet 10 mg PO Q8H #20 tabs 12/15/21 oxycodone 5 mg tablet 5 mg PO Q6H PRN pain #14 tabs 12/15/21 oxycodone 5 mg capsule 5 mg PO TID PRN pain 3 days #9 caps 01/28/22 prednisone 20 mg tablet 60 mg PO DAILY sprain 5 days #15 01/28/22 tabs acetaminophen 500 mg capsule 500 mg PO Q6H PRN fever or pain 09/11/22 #10 caps nirmatrelvir 300 mg (150 mg See Rx Instructions PO .COMPLEX 03/14/22 x2)-ritonavir 100 mg tablet,dose #30 ea pack(EUA) (Paxlovid) Allergies Allergy/AdvReac Type Severity Reaction Status Date / Time morphine [MORPHINE] Allergy Mild ITCHING Verified 07/25/21 18:09 aspirin [ASPIRIN] Allergy Unknown UNKNOWN Verified 07/25/21 18:09 NSAIDS (Non-Steroidal Allergy Unknown UNKNOWN Verified 07/25/21 18:09 Anti-Inflamma [NSAIDS (NON-STEROIDAL ANTI-INFLAMMA] acetaminophen [From TYLENOL] AdvReac Intermediate GI UPSET Verified 07/25/21 18:09 tramadol [TRAMADOL] AdvReac Mild VOMITING Verified 07/25/21 18:09 ketorolac [From TORADOL] AdvReac Unknown NAUSEA Verified 07/25/21 18:09 From DEMEROL Allergy Mild ITCHING Uncoded 07/25/21 18:09 From DILAUDID Allergy Mild ITCHING Uncoded 07/25/21 18:09 Review of Systems Review of Systems: Constitutional : No Weight loss, No Fever, No Chills, No Night Sweats, complaining of fatigue and generalized malaise ENT/Mouth : No Hearing loss, No Ear Pain, No Nasal Congestion, No Sinus Pain, No Hoarseness, No sore throat, complaining of Rhinorrhea, No Swallowing Difficulty Eyes: No Eye Pain, No Swelling, No Redness, No Foreign Body, No Discharge, No Vision Changes Cardiovascular : No Chest Pain, No SOB, No Dyspnea on Exertion, No Orthopnea, No Edema, No Palpitations Respiratory : No Cough, No Sputum, No Wheezing, No Smoke Exposure, No Dyspnea Gastrointestinal : No Nausea, No Vomiting, No Diarrhea, No Constipation, No abdominal Pain, No Hematochezia, No Melena Genitourinary : no irregular bleeding, No Dysuria, No Urinary Frequency, No Hematuria, No Urinary Incontinence, No Urgency, No Flank Pain, No Urinary Flow Changes, No Hesitancy Musculoskeletal : No joint pain, No Myalgias, No Joint Swelling Skin : No Skin Lesions, No rash Neuro : No Weakness, No Numbness, No Paresthesias, No Loss of Consciousness, No Dizziness, No Headache Psych : No Anxiety/Panic, No Depression, No SI/HI/AH/VH, No Social Issues, Heme/Lymph: No Bruising, No Bleeding,No Lymphadenopathy Endocrine : No Polyuria, No Polydipsia, No Temperature Intolerance [facility] Past Medical History Medical History Anxiety Cataract Diabetes Glaucoma Hypertension Neuropathy Sleep apnea Social History Social History Alcohol intake: never Substance Use Type: Marijuana Advance Directives: No Advance Directives Information Provided: Yes Physical Exam ED Vital Signs: Vital Signs - 24 hr 03/13/22 22:29 Temperature 99.7 F Pulse Rate 96 Respiratory Rate 18 Blood Pressure 175/102 H Pulse Oximetry 98 Oxygen Delivery Method Room Air BMI result Body Mass Index 47.5 Const Other: Appearance: Alert. Oriented X3. No acute distress. morbidly obese Eyes: Pupils equal, round and reactive to light. ENT: Pharynx normal. Neck: Normal inspection. Neck supple. No lymph nodes noted. No crepitus CVS: Normal heart rate and rhythm. Pulses normal. Normal S1 and S2 Respiratory: No respiratory distress. Breath sounds normal. No Wheezing. No rales Abdomen: Soft and nontender. No rigidity. No distention. Skin: Skin warm and dry. Normal skin color. Normal skin turgor. Extremities: bilateral lower extremity chronic lymphedema,No Lacerations. No Rash Neuro: Oriented X 3. No motor deficit. No sensory deficit. Moving all extremities. No slurred speech. CN 2 through 12 grossly intact, ambulatory, patient to get out of wheelchair and transfer himself out chair in the ED Psych: calm, cooperative, normal affect Course Course Course Narrative: I discussed with the patient that he tested positive for COVID-19. Due to patient's multiple comorbidities, he would be an ideal candidate for monoclonal antibody treatment. Patient states that this time, he will declined the monoclonal antibody treatment. patient prefers the oral treatment patient denies chest pain, no shortness of breath, oxygen saturation 98% on room air Medical Decision Making Lab Data Labs: Lab Results 03/13/22 Range/Units 22:44 COVID-19 (DANIELLA) Positive A (Negative) COVID-19 Clin Com See Note Discharge Plan Discharge Clinical Impression: COVID-19 Patient Disposition: Home, Self-Care Instructions: COVID-19 (Coronavirus Disease 2019) (ED) Additional Instructions: Please follow-up with your primary care physician tomorrow. If you have any worsening or new symptoms, please return to the emergency room or call 911 Prescriptions: New Paxlovid (EUA) 300 mg (150 mg x 2)-100 mg tablets,dose pack See Rx Instructions .ROUTE .COMPLEX Qty: 30 0RF Rx Instructions: take TWO 150 mg tablets of nirmatrelvir with ONE 100 mg tablet of ritonavir twice daily for 5 days acetaminophen 500 mg capsule 500 mg PO Q6H PRN (Reason: fever or pain) Qty: 10 0RF No Action latanoprost 0.005 % Drops 1 drp OPHTHALMIC (EYE) BEDTIME trazodone 50 mg tablet 1 tab PO BEDTIME trazodone 50 mg Tablet 50 mg PO BEDTIME PRN (Reason: Sleep) glipizide 10 mg Tablet 10 mg PO BIDAC spironolactone 25 mg Tablet 25 mg PO DAILY amlodipine 10 mg tablet 1 tab PO DAILY divalproex 500 mg tablet extended release 24 hr 1 tab PO BEDTIME gabapentin 300 mg capsule 300 mg PO QID hydrochlorothiazide 25 mg Tablet 25 mg PO DAILY lisinopril 40 mg tablet 1 tab PO DAILY cefuroxime axetil 500 mg tablet 500 mg PO BID 7 Days Qty: 14 0RF cyclobenzaprine 10 mg tablet 10 mg PO Q8H Qty: 20 0RF oxycodone 5 mg tablet 5 mg PO Q6H PRN (Reason: pain) Qty: 14 0RF Rx Instructions: Partial Fill upon patient request. prednisone 20 mg tablet 60 mg PO DAILY 5 Days Qty: 15 0RF oxycodone 5 mg capsule 5 mg PO TID PRN (Reason: pain) 3 Days Qty: 9 0RF Rx Instructions: Partial Fill upon patient request.
== END 2022-03-14 02:04 | disposition home or self-care (01) ==
PROVIDERS: Emergency Provider Emergency Medicine
DX: U07.1 COVID-19 (principal); M54.50 Low back pain, unspecified; Z79.899 Other long term (current) drug therapy
CPT/HCPCS: 87635; 99283

== ENCOUNTER 2022-05-09 19:52 | Emergency (ER) | payer OTHER, SELFPAY ==
[2022-05-09 20:16] VITALS: BP 179/89; PULSE 86; RESP 16; TEMP 37.1; O2SAT 98; BMI 38.7
[2022-05-09 20:46] LABS: Appearance Urine Clear; Color Urine Yellow; Glucose Urine UA >=1000 mg/dL (Negative); Leukocyte Esterase Urine Negative (Negative); Nitrite Urine Negative (Negative); Specific Gravity - Urine 1.025 (1.005-1.025); UMIC TRIGGER UACC YES; Urine Blood Negative (Negative); Urine Ketones Negative (Negative); Urine Protein Negative (Neg-Trace)
[2022-05-09 20:49] LABS: Bacteria Urine None Seen (None Seen); Hyaline Casts Urine 0-2 /LPF (0-2); RBC Urine 0-2 /HPF (0-2); Squamous Epithelial Cell Urine 0-2 /HPF (0-2); WBC Urine 0-5 /HPF (0-5)
--- NOTE | 2022-05-09 21:28 | ED.MALEGU ---
HPI - Male Genitourinary General Chief complaint: Urogenital-Male Stated complaint: incontience urine Time Seen by Provider: 05/09/22 21:19 Source: patient Mode of arrival: wheelchair Limitations: no limitations History of Present Illness HPI Narrative: Patient comes to the emergency room complaining of urinating a lot. Patient is known to be diabetic. Patient also states that he has incontinence but this has been an ongoing problem for the last 15 years. Patient denies hematuria or dysuria. No abdominal pain or flank pain. Patient states that he has wanted to make sure that he does not have a urinary tract infection. Related Data Home Medications Medication Instructions Recorded Confirmed amlodipine 10 mg tablet 1 tab PO DAILY 07/26/21 07/26/21 divalproex 500 mg tablet,extended 1 tab PO BEDTIME 07/26/21 07/26/21 release 24 hr gabapentin 300 mg capsule 300 mg PO QID 07/26/21 07/26/21 glipizide 10 mg tablet 10 mg PO BIDAC 07/26/21 07/26/21 hydrochlorothiazide 25 mg tablet 25 mg PO DAILY 07/26/21 07/26/21 latanoprost 0.005 % eye drops 1 drp ophthalmic (eye) BEDTIME 07/26/21 07/26/21 lisinopril 40 mg tablet 1 tab PO DAILY 07/26/21 07/26/21 spironolactone 25 mg tablet 25 mg PO DAILY 07/26/21 07/26/21 trazodone 50 mg tablet 1 tab PO BEDTIME 07/26/21 07/26/21 trazodone 50 mg tablet 50 mg PO BEDTIME PRN Sleep 07/26/21 07/26/21 Previous Rx's Medication Instructions Recorded cefuroxime axetil 500 mg tablet 500 mg PO BID 7 days #14 tabs 12/15/21 cyclobenzaprine 10 mg tablet 10 mg PO Q8H #20 tabs 12/15/21 oxycodone 5 mg tablet 5 mg PO Q6H PRN pain #14 tabs 12/15/21 oxycodone 5 mg capsule 5 mg PO TID PRN pain 3 days #9 caps 01/28/22 prednisone 20 mg tablet 60 mg PO DAILY sprain 5 days #15 01/28/22 tabs acetaminophen 500 mg capsule 500 mg PO Q6H PRN fever or pain 03/14/22 #10 caps nirmatrelvir 300 mg (150 mg See Rx Instructions PO .COMPLEX 03/14/22 x2)-ritonavir 100 mg tablet,dose #30 ea pack(EUA) (Paxlovid) Allergies Allergy/AdvReac Type Severity Reaction Status Date / Time morphine [MORPHINE] Allergy Mild ITCHING Verified 07/25/21 18:09 aspirin [ASPIRIN] Allergy Unknown UNKNOWN Verified 07/25/21 18:09 NSAIDS (Non-Steroidal Allergy Unknown UNKNOWN Verified 07/25/21 18:09 Anti-Inflamma [NSAIDS (NON-STEROIDAL ANTI-INFLAMMA] acetaminophen [From TYLENOL] AdvReac Intermediate GI UPSET Verified 07/25/21 18:09 tramadol [TRAMADOL] AdvReac Mild VOMITING Verified 07/25/21 18:09 ketorolac [From TORADOL] AdvReac Unknown NAUSEA Verified 07/25/21 18:09 From DEMEROL Allergy Mild ITCHING Uncoded 07/25/21 18:09 From DILAUDID Allergy Mild ITCHING Uncoded 07/25/21 18:09 Review of Systems Review of Systems: Constitutional : No Weight loss, No Fever, No Chills, No Night Sweats, No Fatigue, No Malaise ENT/Mouth : No Hearing loss, No Ear Pain, No Nasal Congestion, No Sinus Pain, No Hoarseness, No sore throat, No Rhinorrhea, No Swallowing Difficulty Eyes: No Eye Pain, No Swelling, No Redness, No Foreign Body, No Discharge, No Vision Changes Cardiovascular : No Chest Pain, No SOB, No Dyspnea on Exertion, No Orthopnea, No Edema, No Palpitations Respiratory : No Cough, No Sputum, No Wheezing, No Smoke Exposure, No Dyspnea Gastrointestinal : No Nausea, No Vomiting, No Diarrhea, No Constipation, No abdominal Pain, No Hematochezia, No Melena Genitourinary : no irregular bleeding, No Dysuria, complaining of Urinary Frequency, No Hematuria, Complaining of chronic urinary incontinence for 15+ years, No Urgency, No Flank Pain, No Urinary Flow Changes, No Hesitancy Musculoskeletal : No joint pain, No Myalgias, No Joint Swelling Skin : No Skin Lesions, No rash Neuro : No Weakness, No Numbness, No Paresthesias, No Loss of Consciousness, No Dizziness, No Headache Psych : No Anxiety/Panic, No Depression, No SI/HI/AH/VH, No Social Issues, Heme/Lymph: No Bruising, No Bleeding,No Lymphadenopathy Endocrine : No Polyuria, No Polydipsia, No Temperature Intolerance [facility] Past Medical History Medical History Anxiety Cataract Diabetes Glaucoma Hypertension Neuropathy Sleep apnea Social History Social History Alcohol intake: never Substance Use Type: Marijuana Advance Directives: No Advance Directives Information Provided: Yes Physical Exam Vital Signs: Vital Signs: Last Vital Signs Temp 98.7 F 05/09/22 20:16 Pulse 86 05/09/22 20:16 Resp 16 05/09/22 20:16 BP 179/89 H 05/09/22 20:16 Pulse Ox 98 05/09/22 20:16 O2 Del Method 05/09/22 20:16 BMI result Body Mass Index 38.7 Const: Other: Appearance: Alert. Oriented X3. No acute distress. Morbidly obese Eyes: Pupils equal, round and reactive to light. ENT: Pharynx normal. Neck: Normal inspection. Neck supple. No lymph nodes noted. No crepitus CVS: Normal heart rate and rhythm. Pulses normal. Normal S1 and S2 Respiratory: No respiratory distress. Breath sounds normal. No Wheezing. No rales Abdomen: Soft and nontender. No rigidity. No distention. Skin: Skin warm and dry. Normal skin color. Normal skin turgor. Extremities: No lower extremity edema. No Lacerations. No Rash Neuro: Oriented X 3. No motor deficit. No sensory deficit. Moving all extremities. No slurred speech. CN 2 through 12 grossly intact Psych: calm, cooperative, normal affect Course Course Course Narrative: Patient states that he has chronic back pain, no new changes. Chronic urinary incontinence for 15+ years. The only new symptom is that he is urinating more than usual. Point of care pending, urinalysis negative for UTI Patient's point of care is 287. Patient inserted to follow-up with Urology and his primary care physician for treatment of chronic urinary incontinence MDM - Male Genitourinary Lab Data Labs: Lab Results 05/09/22 05/09/22 Range/Units 20:36 22:35 POC Glucose 287 H (60-115) mg/dL Urine Color Yellow Urine Appearance Clear Urine pH 7.0 (5.0-9.0) Ur Specific [place] 1.025 (1.005-1.025) Urine Protein Negative (Neg-Trace) mg/dL Urine Glucose (UA) >=1000 H (Negative) mg/dL Urine Ketones Negative (Negative) mg/dL Urine Blood Negative (Negative) Urine Nitrite Negative (Negative) Ur Leukocyte Esterase Negative (Negative) Urine RBC 0-2 (0-2) /HPF Urine WBC 0-5 (0-5) /HPF Ur Squamous Epith Cells 0-2 (0-2) /HPF Urine Bacteria None Seen (None Seen) Hyaline Casts 0-2 (0-2) /LPF Discharge Plan Discharge Clinical Impression: Polyuria, Urinary incontinence Patient Disposition: Home, Self-Care Instructions: Urinary Incontinence (ED), Polyuria (ED) Additional Instructions: Please follow-up with your primary care physician tomorrow. If you have any worsening or new symptoms, please return to the emergency room or call 911 Prescriptions: No Action latanoprost 0.005 % Drops 1 drp OPHTHALMIC (EYE) BEDTIME trazodone 50 mg tablet 1 tab PO BEDTIME trazodone 50 mg Tablet 50 mg PO BEDTIME PRN (Reason: Sleep) glipizide 10 mg Tablet 10 mg PO BIDAC spironolactone 25 mg Tablet 25 mg PO DAILY amlodipine 10 mg tablet 1 tab PO DAILY divalproex 500 mg tablet extended release 24 hr 1 tab PO BEDTIME gabapentin 300 mg capsule 300 mg PO QID hydrochlorothiazide 25 mg Tablet 25 mg PO DAILY lisinopril 40 mg tablet 1 tab PO DAILY Paxlovid (EUA) 300 mg (150 mg x 2)-100 mg tablets,dose pack See Rx Instructions .ROUTE .COMPLEX Qty: 30 0RF Rx Instructions: take TWO 150 mg tablets of nirmatrelvir with ONE 100 mg tablet of ritonavir twice daily for 5 days acetaminophen 500 mg capsule 500 mg PO Q6H PRN (Reason: fever or pain) Qty: 10 0RF cefuroxime axetil 500 mg tablet 500 mg PO BID 7 Days Qty: 14 0RF cyclobenzaprine 10 mg tablet 10 mg PO Q8H Qty: 20 0RF oxycodone 5 mg tablet 5 mg PO Q6H PRN (Reason: pain) Qty: 14 0RF Rx Instructions: Partial Fill upon patient request. prednisone 20 mg tablet 60 mg PO DAILY 5 Days Qty: 15 0RF oxycodone 5 mg capsule 5 mg PO TID PRN (Reason: pain) 3 Days Qty: 9 0RF Rx Instructions: Partial Fill upon patient request.
[2022-05-09 22:40] LABS: Glucose, Whole Blood 287 mg/dL (60-115)
[2022-05-10] VITALS: BP 200/93; PULSE 82; RESP 17; TEMP 36.2; O2SAT 97
--- NOTE | 2022-05-10 00:29 | PC.NURSE ---
pt bp elevated will recheck before discharge pt.
[2022-05-10 00:42] VITALS: BP 186/94; PULSE 81; RESP 20; O2SAT 96
== END 2022-05-10 00:51 | disposition home or self-care (01) ==
PROVIDERS: Emergency Provider Emergency Medicine
DX: R32 Unspecified urinary incontinence (principal); R35.89 Other polyuria; Z79.899 Other long term (current) drug therapy
CPT/HCPCS: 81001; 82947; 99283

== ENCOUNTER 2022-11-26 20:36 | Emergency (ER) | payer OTHER, SELFPAY ==
--- NOTE | 2022-11-26 20:38 | ECG_ITS ---
Test Reason : CHEST PAIN Blood Pressure : / mmHG Vent. Rate : 087 BPM Atrial Rate : 087 BPM P-R Int : 176 ms QRS Dur : 098 ms QT Int : 370 ms P-R-T Axes : 025 -22 041 degrees QTc Int : 445 ms Normal sinus rhythm Minimal voltage criteria for LVH, may be normal variant ( R in aVL ) Possible Anterior infarct , age undetermined Abnormal ECG When compared with ECG of 25-JUL-2021 18:23, No significant change was found Referred By: Generic ED Physician Electronically Signed By:REYNA SAINZ
[2022-11-26 20:46] VITALS: BP 124/80; BP 139/84; PULSE 90; PULSE 94; RESP 18; TEMP 36.2; O2SAT 97; O2SAT 99; BMI 40.7
--- NOTE | 2022-11-26 22:19 | PC.NURSE ---
pt requesting to speak to social media analyst per tech.
[2022-11-26 22:40] LABS: Glucose, Whole Blood 224 mg/dL (60-115)
--- NOTE | 2022-11-26 22:40 | ED_ITS ---
HPI - General Adult General Chief complaint: General Medical Stated complaint: indigestion Time Seen by Provider: 11/26/22 22:08 Source: patient Mode of arrival: ambulatory Limitations: no limitations History of Present Illness HPI narrative: Patient with history of chronic gastric reflux problem felt ingestion just prior to arrival after eating food at more felt nauseated burp and feeling much better now history of same in the past no fever no vomiting Related Data Home Medications Medication Instructions Recorded Confirmed amlodipine 10 mg tablet 1 tab PO DAILY 07/26/21 07/26/21 divalproex 500 mg tablet,extended 1 tab PO BEDTIME 07/26/21 07/26/21 release 24 hr gabapentin 300 mg capsule 300 mg PO QID 07/26/21 07/26/21 glipizide 10 mg tablet 10 mg PO BIDAC 07/26/21 07/26/21 hydrochlorothiazide 25 mg tablet 25 mg PO DAILY 07/26/21 07/26/21 latanoprost 0.005 % eye drops 1 drp ophthalmic (eye) BEDTIME 07/26/21 07/26/21 lisinopril 40 mg tablet 1 tab PO DAILY 07/26/21 07/26/21 spironolactone 25 mg tablet 25 mg PO DAILY 07/26/21 07/26/21 trazodone 50 mg tablet 1 tab PO BEDTIME 07/26/21 07/26/21 trazodone 50 mg tablet 50 mg PO BEDTIME PRN Sleep 07/26/21 07/26/21 Previous Rx's Medication Instructions Recorded cefuroxime axetil 500 mg tablet 500 mg PO BID 7 days #14 tabs 12/15/21 cyclobenzaprine 10 mg tablet 10 mg PO Q8H #20 tabs 12/15/21 oxycodone 5 mg tablet 5 mg PO Q6H PRN pain #14 tabs 12/15/21 oxycodone 5 mg capsule 5 mg PO TID PRN pain 3 days #9 caps 01/28/22 prednisone 20 mg tablet 60 mg PO DAILY sprain 5 days #15 01/28/22 tabs acetaminophen 500 mg capsule 500 mg PO Q6H PRN fever or pain 03/14/22 #10 caps nirmatrelvir 300 mg (150 mg See Rx Instructions PO .COMPLEX 03/14/22 x2)-ritonavir 100 mg tablet,dose #30 ea pack(EUA) (Paxlovid) pantoprazole 40 mg tablet,delayed 40 mg PO DAILY #30 tabs 11/26/22 release (Protonix) Allergies Allergy/AdvReac Type Severity Reaction Status Date / Time morphine [MORPHINE] Allergy Mild ITCHING Verified 11/26/22 20:46 aspirin [ASPIRIN] Allergy Unknown UNKNOWN Verified 11/26/22 20:46 NSAIDS (Non-Steroidal Allergy Unknown UNKNOWN Verified 11/26/22 20:46 Anti-Inflamma [NSAIDS (NON-STEROIDAL ANTI-INFLAMMA] acetaminophen [From TYLENOL] AdvReac Intermediate GI UPSET Verified 11/26/22 20:46 tramadol [TRAMADOL] AdvReac Mild VOMITING Verified 11/26/22 20:46 ketorolac [From TORADOL] AdvReac Unknown NAUSEA Verified 11/26/22 20:46 From DEMEROL Allergy Mild ITCHING Uncoded 11/26/22 20:46 From DILAUDID Allergy Mild ITCHING Uncoded 11/26/22 20:46 Review of Systems Review of Systems: Yes all other systems are reviewed and are negative [facility] Past Medical History Medical History Anxiety Cataract Diabetes Glaucoma Hypertension Neuropathy Sleep apnea Social History Social History Alcohol intake: never Substance Use Type: Marijuana Advance Directives: No Advance Directives Information Provided: No Physical Exam ED Vital Signs: Vital Signs - 24 hr 11/26/22 20:46 Temperature 97.1 F Pulse Rate 90 Respiratory Rate 18 Blood Pressure 139/84 Pulse Oximetry 99 Oxygen Delivery Method Room Air BMI result Body Mass Index 40.7 Appearance: Alert. Oriented X3. No acute distress obese patient. ENT: Pharynx normal. Oral Mucosa moist Neck: Normal inspection. Neck supple. CVS: Normal heart rate and rhythm. Pulses normal. Respiratory: No respiratory distress. Equal air entry bilateral, no wheezing/rales/rhonchi Abdomen: Soft , mild epigastric tenderness Bowel sounds are present, no mass palpable, no CVA tenderness Skin: Skin warm and dry. Normal skin color. Normal skin turgor. Extremities: No lower extremity edema. No calf tenderness Neuro: Oriented X 3. No motor deficit. Medications Administered Discontinued Medications Generic Name Dose Route Start Last Admin Trade Name Freq PRN Reason Stop Dose Admin Al Hydroxide/Mg Hydroxide 30 ml 11/26/22 22:15 11/26/22 23:11 Magnesium Hydrox/Alum Hydrox 30 Ml Oral.Susp PO 11/26/22 22:16 30 ml ONCE ONE Administration Omeprazole 40 mg 11/26/22 22:15 11/26/22 23:11 Omeprazole 40 Mg Capsule.Dr PO 11/26/22 22:16 40 mg ONCE ONE Administration Ondansetron HCl 4 mg 11/26/22 22:15 11/26/22 23:11 Ondansetron Odt 4 Mg Tab.Rapdis TRANSLINGU 11/26/22 22:16 4 mg ONCE ONE Administration Medical Decision Making Lab Data Labs: Lab Results 11/26/22 Range/Units 22:36 POC Glucose 224 H (60-115) mg/dL Discharge Plan Discharge Clinical Impression: Chronic GERD Patient Disposition: Home, Self-Care Instructions: Gastroesophageal Reflux Disease (ED) Additional Instructions: Take medication as prescribed And follow up with PCP Prescriptions: New pantoprazole [Protonix] 40 mg tablet,delayed release (DR/EC) 40 mg PO DAILY Qty: 30 0RF No Action latanoprost 0.005 % Drops 1 drp OPHTHALMIC (EYE) BEDTIME trazodone 50 mg tablet 1 tab PO BEDTIME trazodone 50 mg Tablet 50 mg PO BEDTIME PRN (Reason: Sleep) glipizide 10 mg Tablet 10 mg PO BIDAC spironolactone 25 mg Tablet 25 mg PO DAILY amlodipine 10 mg tablet 1 tab PO DAILY divalproex 500 mg tablet extended release 24 hr 1 tab PO BEDTIME gabapentin 300 mg capsule 300 mg PO QID hydrochlorothiazide 25 mg Tablet 25 mg PO DAILY lisinopril 40 mg tablet 1 tab PO DAILY Paxlovid (EUA) 300 mg (150 mg x 2)-100 mg tablets,dose pack See Rx Instructions .ROUTE .COMPLEX Qty: 30 0RF Rx Instructions: take TWO 150 mg tablets of nirmatrelvir with ONE 100 mg tablet of ritonavir twice daily for 5 days acetaminophen 500 mg capsule 500 mg PO Q6H PRN (Reason: fever or pain) Qty: 10 0RF cefuroxime axetil 500 mg tablet 500 mg PO BID 7 Days Qty: 14 0RF cyclobenzaprine 10 mg tablet 10 mg PO Q8H Qty: 20 0RF oxycodone 5 mg tablet 5 mg PO Q6H PRN (Reason: pain) Qty: 14 0RF Rx Instructions: Partial Fill upon patient request. prednisone 20 mg tablet 60 mg PO DAILY 5 Days Qty: 15 0RF oxycodone 5 mg capsule 5 mg PO TID PRN (Reason: pain) 3 Days Qty: 9 0RF Rx Instructions: Partial Fill upon patient request.
[2022-11-26] MEDS: Magnesium Hydrox/Alum Hydrox 30 ML ORAL.SUSP PO (23:11)
[2022-11-26] MEDS: Ondansetron ODT 4 MG TAB.RAPDIS TRANSLINGU (23:11)
[2022-11-26] MEDS: Omeprazole 40 MG CAPSULE.DR PO (23:11)
[2022-11-26 23:49] VITALS: BP 159/82; PULSE 77; RESP 16; TEMP 36.8; O2SAT 98
== END 2022-11-26 23:54 | disposition home or self-care (01) ==
PROVIDERS: Emergency Provider Internal Medicine
DX: K21.9 Gastro-esophageal reflux disease without esophagitis (principal); R10.13 Epigastric pain; E11.9 Type 2 diabetes mellitus without complications; I10 Essential (primary) hypertension; Z79.899 Other long term (current) drug therapy
CPT/HCPCS: 82947; 93005; 99283; 99284